=== PATIENT | male | born 1990 | race Caucasian/White ===

== ENCOUNTER → 2019-10-20 12:40 | Outpatient (BNVA) | payer MEDICARE, MEDICAID, SELFPAY | PROVIDERS: PCP Family Medicine; Visit Provider Psychiatry & Neurology Psychiatry | DX: F20.89 Other schizophrenia (principal) | CPT/HCPCS: 99214 ==

== ENCOUNTER → 2019-11-14 12:19 | Outpatient (BNVA) | payer MEDICARE, MEDICAID, SELFPAY | PROVIDERS: PCP Family Medicine; Visit Provider Nurse Practitioner Psychiatric/Mental Health | DX: F20.9 Schizophrenia, unspecified; F41.1 Generalized anxiety disorder; F12.11 Cannabis abuse, in remission | CPT/HCPCS: 80307; 99214 ==

== ENCOUNTER → 2019-12-08 15:38 | Outpatient (BNVA) | payer MEDICARE, MEDICAID, SELFPAY | PROVIDERS: PCP Family Medicine; Visit Provider Psychiatry & Neurology Psychiatry | DX: F20.9 Schizophrenia, unspecified (principal); F41.1 Generalized anxiety disorder | CPT/HCPCS: 99213 ==

== ENCOUNTER → 2019-12-26 08:38 | Outpatient (BNVA) | payer MEDICARE, MEDICAID, SELFPAY | PROVIDERS: PCP Family Medicine; Visit Provider Psychiatry & Neurology Psychiatry | DX: F41.1 Generalized anxiety disorder (principal); F20.9 Schizophrenia, unspecified; F12.11 Cannabis abuse, in remission | CPT/HCPCS: 99213 ==

== ENCOUNTER → 2020-02-29 07:48 | Outpatient (BNVA) | payer MEDICARE, MEDICAID, SELFPAY | PROVIDERS: PCP Family Medicine; Visit Provider Psychiatry & Neurology Psychiatry | DX: F41.1 Generalized anxiety disorder (principal); F20.9 Schizophrenia, unspecified; F12.11 Cannabis abuse, in remission | CPT/HCPCS: 99214 ==

== ENCOUNTER 2020-05-27 16:52 | Emergency (ER) | payer MEDICARE, SELFPAY ==
[2020-05-27 16:59] VITALS: BP 140/83; PULSE 106; RESP 16; TEMP 36.8; O2SAT 96; BMI 28.2
[2020-05-27 17:47] VITALS: BP 125/76; PULSE 94; RESP 18; O2SAT 96
--- NOTE | 2020-05-27 18:23 | ED_ITS ---
HPI - Allergic Reaction General: Chief complaint: Allergic Reaction Stated complaint: ALLERGIC REACTION Time Seen by Provider: 05/27/20 17:08 Source: patient Mode of arrival: EMS Limitations: no limitations History of Present Illness: HPI narrative: Patient felt like a swelling in his throat earlier today, slept and woke up on he still had the feeling. He got a little anxious and he felt he was having some trouble breathing so he called for an ambulance. He does not know what he may be allergic to. In the ambulance he received Benadryl and his symptoms had resolved by the time he arrived in the emergency department. He felt much improved and did not have any complaints when I saw him. complaint: allergic reaction Onset (ago): hour(s) (4) Exposure: unknown Associated symptoms: Reports difficulty breathing and dysphagia; Deny dizziness, facial swelling, hoarseness, itching, lip swelling, nausea, rash, tongue swelling or vomiting Treatment prior to arrival: benadryl Review of Systems General: Reports: 10 or more systems reviewed and unremarkable except in HPI and below Const: Denies: fever(s), chills or body aches Eyes: Denies: change in vision or blurry vision ENMT: Denies: hoarseness Card: Denies: palpitations, irregular heart rhythm, edema or swelling of feet/ankles Resp: Denies: dyspnea, productive cough or non-productive cough GI: Reports: dysphagia; Denies: nausea or vomiting : Denies: flank pain, dysuria, urinary frequency, urinary urgency or urinary hesitancy Musc: Denies: neck pain, back pain or extremity swelling Skin/Breast: Denies: rash, pruritus or erythema Neuro: Denies: dizziness Endo: Denies: polyuria, polydipsia or tired all the time All/Imm: Denies: tongue swelling or facial swelling PFSH ED PFSH: Medical History Generalized anxiety disorder Diagnosis from previous provider, Dr. Eugene. Marijuana abuse in remission Patient reports abstinence from illegal drug use. He does report using Kratom , one or two tablespoons per day. Recent surgical procedure on lower extremity Right leg Schizophrenia Longstanding diagnosis. Surgical History History of rectal surgery Physical Exam Const: COMMON NORMALS: no acute distress, average body habitus, patient oriented x3, no limitations, healthy appearing, alert and well nourished HENMT: COMMON NORMALS: normocephalic, atraumatic and moist oral mucous membranes HEAD & SCALP: normocephalic and atraumatic Neck/C-Spine: COMMON NORMALS: no meningeal signs and no JVD Resp: COMMON NORMALS: normal respiratory effort, No retractions, No use of accessory muscles, clear to auscultation bilaterally and percussion normal AUSCULTATION: clear to auscultation bilaterally PERCUSSION: percussion normal Cardio: COMMON NORMALS: no JVD, regular rate, regular rhythm, S1 normal heart sound present, S2 normal heart sound present, No gallops present (Cardio), No clicks present (Cardio), No murmurs present (Cardio), No rub (Cardio) and Peripheral pulses 2+ throughout RATE: regular rate RHYTHM: regular rhythm HEART SOUNDS: S1 normal heart sound present and S2 normal heart sound present PERIPHERAL PULSES: Peripheral pulses 2+ throughout GI: COMMON NORMALS: Normal to inspection, nondistended, normoactive bowel sounds present, Soft to palpation, non-tender, No hepatosplenomegaly present, no masses and no bruits PALPATION: Yes Soft to palpation and Yes No hepatosplenomegaly present Extremity: COMMON NORMALS: normal to inspection, full ROM, capillary refill normal, no calf tenderness and no pedal edema Neuro: COMMON NORMALS: patient oriented x3 SENSORIUM/ORIENTATION: Yes alert MENINGEAL SIGNS: Yes no meningeal signs Skin: COMMON NORMALS: no rashes or lesions noted, no wounds, turgor normal, no jaundice, no petechiae and no mottling GENERAL SKIN EXAM: no rashes or lesions noted and turgor normal Course Reevaluation(s): Reevaluation #1: Continues to do well. Still asymptomatic. We will discharge him home with a prescription for oral steroids and Benadryl. He voiced understanding and is in agreement with the plan Time: 18:23 Vital Signs: Vital signs: Vital Signs Temperature 98.2 F 05/27/20 16:59 Pulse Rate 98 05/27/20 18:33 Respiratory Rate 17 05/27/20 18:33 Blood Pressure 127/95 05/27/20 18:33 Pulse Oximetry 96 05/27/20 18:33 MDM - Allergic Reaction MDM Narrative: Medical decision making narrative: 30-year-old male who presented with symptoms that he felt was due to allergies. He was given Benadryl in the ambulance and symptoms resolved prior to arriving in the emergency department. He was given a dose of intravenous steroids to combat a delayed reaction effects happened to occur. I discharged home with oral steroids and Benadryl. He remained asymptomatic throughout his ED stay. Vital signs were fine. Medical Records: Attestation: I reviewed the patient's medical records. Discharge Plan Discharge Patient Disposition: Home Clinical Impression: Allergic reaction Qualifiers: Encounter type: initial encounter Qualified Code(s): T78.40XA - Allergy, unspecified, initial encounter Condition: Stable Prescriptions: New Benadryl Allergy 25 mg tablet 25 mg PO Q6H PRN (Reason: allergic reaction) Qty: 30 RF: 0 prednisone 20 mg tablet 40 mg PO DAILY 3 Days Qty: 6 RF: 0 Continued olanzapine 2.5 mg tablet 2.5 mg PO .HS Qty: 30 RF: 0 perphenazine 2 mg tablet 6 mg PO .HS Qty: 90 RF: 0 sertraline [Zoloft] 100 mg tablet 100 mg PO DAILY Qty: 30 RF: 0 Discharge Orders: Discharge Order (Routine); Ordered 05/27/20 Ordered By: Mehnaz Mistry Referrals: [facility], [Family Provider] - Patient Instructions: Allergic Reaction Activity Restrictions/Additional Instructions: Return for any new or worsening symptoms. Follow-up with your primary care provider within 3 days. Take the medications as prescribed. Discharge Date/Time: 05/27/20 18:35 Coding Level of Care Code ED Telemedicine Physician for Faina Pearson
[2020-05-27 18:33] VITALS: BP 127/95; PULSE 98; RESP 17; O2SAT 96
== END 2020-05-27 18:35 | disposition home or self-care (01) ==
PROVIDERS: Emergency Provider Family Medicine
DX: T78.40XA Allergy, unspecified, initial encounter (principal)
CPT/HCPCS: 12345; 96374; 96375; 99281; 99283; J2930

== ENCOUNTER → 2020-06-06 08:22 | Outpatient (BNVA) | payer MEDICARE, MEDICAID, SELFPAY | PROVIDERS: Visit Provider Psychiatry & Neurology Psychiatry | DX: F12.11 Cannabis abuse, in remission (principal); F41.1 Generalized anxiety disorder; F20.9 Schizophrenia, unspecified | CPT/HCPCS: 99213 ==

== ENCOUNTER → 2020-07-31 08:13 | Outpatient (BNVA) | payer MEDICARE, MEDICAID, SELFPAY | PROVIDERS: Visit Provider Psychiatry & Neurology Psychiatry | DX: F41.1 Generalized anxiety disorder (principal); F12.11 Cannabis abuse, in remission; F20.9 Schizophrenia, unspecified | CPT/HCPCS: 99214 ==

== ENCOUNTER 2020-09-25 02:22 | Inpatient (IN) | payer MEDICARE, SELFPAY ==
[2020-09-25] VITALS (7 sets, daily range): BP systolic 91–164; BP diastolic 66–115; PULSE 86–131; RESP 16–20; TEMP 36.1–37.3; O2SAT 96–98; BMI 30.8
--- NOTE | 2020-09-25 02:38 | W.ED.PSYCH ---
HPI - Psych General: Chief Complaint: Psychiatric Symptoms Stated Complaint: psych Time Seen by Provider: 09/25/20 02:27 Source: patient Mode of arrival: ambulatory Limitations: no limitations History of Present Illness: HPI Narrative: 30-year-old male who is brought here by police hallucinations. He states he has a history of schizophrenia and has not been taking his meds and used methamphetamine recently. He states he has been hearing voices and thinks that people are out to kill him. Denies any suicidal homicidal ideations. Denies any worsening improving factors. Associated symptoms: Reports auditory hallucinations and depression Review of Systems Const: Denies: fever(s), chills, body aches or change in appetite Eyes: Denies: blurry vision or eye discomfort ENMT: Denies: throat pain or dental pain Card: Denies: chest pain Resp: Denies: dyspnea GI: Denies: abdominal pain, nausea, vomiting or diarrhea : Denies: dysuria Musc: Denies: neck pain or back pain Skin/Breast: Denies: rash Neuro: Denies: headache(s) Psych: Reports: depression, paranoia and auditory hallucinations Александр/Lymph: Denies: easy bruising All/Imm: Denies: urticaria PFSH ED PFSH: Medical History (Updated 09/25/20 @ 03:31 by Daysi Hensley MD) Generalized anxiety disorder Diagnosis from previous provider, Dr. Eugene. Marijuana abuse in remission Patient reports abstinence from illegal drug use. He does report using Kratom , one or two tablespoons per day. Recent surgical procedure on lower extremity Right leg Schizophrenia Longstanding diagnosis. Surgical History History of rectal surgery Physical Exam Const: COMMON NORMALS: patient oriented x3 GENERAL APPEARANCE: in distress and anxious HENMT: COMMON NORMALS: normocephalic and atraumatic HEAD & SCALP: normocephalic and atraumatic Eye: COMMON NORMALS: Equal, round and reactive pupils present and EOMs intact bilaterally PUPIL: Yes Equal, round and reactive pupils present Neck/C-Spine: COMMON NORMALS: full ROM and supple Chest: COMMONS NORMALS: normal inspection of the chest and normal palpation of entire chest wall Resp: COMMON NORMALS: normal respiratory effort, No retractions, No use of accessory muscles and clear to auscultation bilaterally AUSCULTATION: clear to auscultation bilaterally Cardio: COMMON NORMALS: regular rate, regular rhythm and No murmurs present (Cardio) RATE: regular rate RHYTHM: regular rhythm GI: COMMON NORMALS: Normal to inspection, nondistended, normoactive bowel sounds present, Soft to palpation, non-tender and no masses PALPATION: Yes Soft to palpation Extremity: COMMON NORMALS: normal to inspection and full ROM Neuro: COMMON NORMALS: patient oriented x3, moves all extremities and no focal motor deficits Psych: COMMON NORMALS: cooperative MOOD & AFFECT: Yes anxious THOUGHT PROCESS: Flight of ideas present and Loose association thought process present THOUGHT CONTENT: Yes Hallucination(s) present Skin: COMMON NORMALS: no rashes or lesions noted and no wounds GENERAL SKIN EXAM: no rashes or lesions noted MDM - Psych MDM Narrative: Medical decision making narrative: Eleanor presents here with schizophrenia with increased hallucinations. Is likely due to noncompliance along with methamphetamine abuse. Patient is medically cleared I spoke to psychiatrist and will admit at this time. Lab Data: Labs: Lab Results 09/25/20 09/25/20 09/25/20 Range/Units 02:55 03:10 03:10 WBC 14.6 H (4.0-10.0) 10^3/ uL RBC 5.84 H (4.1-5.3) 10^6/u L Hgb 16.1 (11.7-16.6) g/dL Hct 47.7 (42.0-52.0) % MCV 81.7 (80-94) fL MCH 27.6 L (28.0-34.0) pg MCHC 33.8 (30.0-36.0) g/dL RDW 12.1 (12.1-15.1) % Plt Count 358 (130-400) 10^3/c mm MPV 10.2 (7.4-10.4) fL Neut % (Auto) 81.8 % Lymph % (Auto) 9.5 % Chase % (Auto) 8.3 % Eos % (Auto) 0.0 % Baso % (Auto) 0.2 % Neut # (Auto) 11.90 H (1.8-7.7) 10^3/u L Lymph # (Auto) 1.4 (0.8-4.8) 10^3/u L Chase # (Auto) 1.2 H (0.2-0.9) 10^3/u L Eos # (Auto) 0.0 (0.0-0.8) 10^3/u L Baso # (Auto) 0.0 (0.0-0.1) 10^3/u L Nucleated RBC % (a uto) 0 % Nucleated RBCs # 0.0 /100WBC Sodium 137 (136-145) mmol/L Potassium 3.7 (3.5-5.1) mmol/L Chloride 100 (98-107) mmol/L Carbon Dioxide 24 (22-29) mmol/L Anion Gap 16.7 (5-19) BUN 10 (6-20) mg/dL Creatinine 1.1 (0.7-1.2) mg/dL GFR Calculation 78.1 L (90-130) mL/min Glucose 109 (65-115) mg/dL Calculated Osmolal ity 284 L (285-295) mOsm/k g Calcium 10.1 (8.5-10.5) mg/dL Total Bilirubin 0.3 (0.15-1.2) mg/dL AST 21 (0-40) U/L ALT 22 (0-41) U/L Alkaline Phosphata se 133 H (40-130) IU/L Total Protein 8.1 (6.6-8.7) g/dL Albumin 4.7 (3.5-5.2) g/dL Globulin 3.4 (1.3-4.6) g/dL Salicylates < 0.3 L (3-10) mg/dL Urine Opiates Scre en Negative (Negative) ng/mL Acetaminophen < 5.0 L (10-30) ug/mL Ur Barbiturates Sc reen Negative (Negative) ng/mL Ur Phencyclidine S crn Negative (Negative) ng/mL Ur Amphetamines Sc reen Positive H (Negative) ng/mL U Benzodiazepines Scrn Negative (Negative) ng/mL Urine Cocaine Scre en Positive H (Negative) ng/mL U Marijuana (THC) Screen Negative (Negative) ng/mL Ethyl Alcohol 14 H (0-10) mg/dL Discharge Plan Discharge Patient Disposition: Admitted As Inpatient Clinical Impression: Schizophrenia, Methamphetamine abuse Condition: Stable Coding Level of Care Code ED Center Receptionist for Chg Fwd Exam Comprehensive
[2020-09-25] MEDS: haloperidol 5 mg Tablet PO (02:45)
[2020-09-25] MEDS: LORazepam 2 mg Tablet PO (02:45)
[2020-09-25 03:16] LABS: Basophils % 0.2 %; Hematocrit 47.7 % (42.0-52.0); Hemoglobin 16.1 g/dL (11.7-16.6); Lymphocytes # 1.4 10^3/uL (0.8-4.8); Lymphocytes % 9.5 %; Mean Corpuscular HGB Conc 33.8 g/dL (30.0-36.0); Mean Corpuscular Hemoglobin 27.6 pg (28.0-34.0); Mean Corpuscular Volume 81.7 fL (80-94); Mean Platelet Volume 10.2 fL (7.4-10.4); Monocytes # 1.2 10^3/uL (0.2-0.9); Monocytes % 8.3 %; Neutrophils % 81.8 %; Nucleated Red Blood Cells % 0 %; Platelet Count 358 10^3/cmm (130-400); Red Blood Count 5.84 10^6/uL (4.1-5.3); Red Cell Distribution Width 12.1 % (12.1-15.1); White Blood Count 14.6 10^3/uL (4.0-10.0)
[2020-09-25 03:22] LABS: Amphetamines Screen Urine Positive (Negative); Barbiturates Screen Urine Negative (Negative); Benzodiazepines Screen Urine Negative (Negative); Cocaine Screen Urine Positive (Negative); Opiate Screen Urine Negative (Negative); PCP Screen Urine Negative (Negative); THC Screen Urine Negative (Negative)
[2020-09-25 03:35] LABS: Alanine Aminotransferase 22 U/L (0-41); Albumin Level 4.7 g/dL (3.5-5.2); Alcohol Level 14 mg/dL (0-10); Alkaline Phosphatase 133 IU/L (40-130); Anion Gap 16.7 (5-19); Aspartate Amino Transferase 21 U/L (0-40); Blood Urea Nitrogen 10 mg/dL (6-20); Calcium 10.1 mg/dL (8.5-10.5); Carbon Dioxide 24 mmol/L (22-29); Chloride 100 mmol/L (98-107); Globulin 3.4 g/dL (1.3-4.6); Glomerular Filtration Rate 78.1 mL/min (90-130); Glucose 109 mg/dL (65-115); Osmolality Calculated 284 mOsm/kg (285-295); Potassium 3.7 mmol/L (3.5-5.1); Sodium 137 mmol/L (136-145); Total Bilirubin 0.3 mg/dL (0.15-1.2); Total Protein 8.1 g/dL (6.6-8.7)
[2020-09-25 03:36] LABS: Acetaminophen < 5.0 ug/mL (10-30); Salicylate < 0.3 mg/dL (3-10)
[2020-09-25] MEDS: nicotine 2 mg Gum BUCCAL (05:06)
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
[2020-09-25] MEDS: OLANZapine 10 mg TABLET PO (23:28)
[2020-09-26] MEDS: hyDROXYzine 25 mg Capsule 50 MG PO (03:14)
[2020-09-26 05:59] VITALS: BP 133/78; PULSE 97; RESP 16; TEMP 37; O2SAT 97
[2020-09-26 14:00] VITALS: BP 126/86; PULSE 94; RESP 18; TEMP 36.2; O2SAT 98
--- NOTE | 2020-09-26 18:50 | PM.NPN ---
Subjective NPU Subjective: Interval history: Korey presents today reporting that he is feeling better with the Zyprexa and feels like he will be able to manage things fine now that he has access to his medication. He denies any lethality and reports that his psychosis is improving. We discussed the possibility of discharge tomorrow if he continues to do well and are collateral information does not uncover any problematic issues. Mental Status Exam MSE Comments: This is an obese white male in hospital scrubs with limited grooming and eye contact. No abnormal movements except for mild psychomotor retardation. Cooperative with exam in less distress. Speech was decreased rate and volume. Mood described as a little better, affect less subdued. Thought process organized. Thought content: Patient denied suicidal or homicidal ideation, there were no delusions reported and his paranoia seems less notable, he denied any auditory or visual hallucinations at this point. Attention and concentration appeared intact and memory was reliable but none were formally tested. He is alert and oriented x3. Insight and judgment are limited, but improving impulse control is fair. Vitals/I&O/Wt Last Vital Signs Temp 98.5 F 09/26/20 20:10 Pulse 92 09/26/20 20:10 Resp 18 09/26/20 20:10 BP 137/81 09/26/20 20:10 Pulse Ox 97 09/26/20 20:10 Data NPU : 09/25/20 03:10 09/25/20 03:10 A&P Additional A&P Information (1) Methamphetamine abuse: (2) Marijuana abuse in remission: (3) Generalized anxiety disorder: (4) Schizophrenia: This is a 30-year-old white male with a long history of mental health issues including schizophrenia with addiction active at this point who presents off of his medication on a 96-hour hold open to restarting medications. 1. Continue current medication. 2. Continue every 15 minute checks for safety. 3. Encourage individual group and milieu therapy. 4. Encourage sober living treatment after discharge at the highest level of care to which she is willing to commit. 5. Likely plan for discharge tomorrow. Involuntary Hold Information 96 Hour Hold: 96 Hour Involuntary Admission: Yes 96 Hour Hold Ending Date: 10/01/20 96 Hour Hold Ending Time: 02:22 Attestations NPU Medical Necessity Statement*: Inpatient hospitalization is medically necessary and the clinically appropriate intervention at this time. We will monitor medications and make changes as indicated. Likely length of stay 1-3 days. Coding Level of Care Code Acute Security Operations Specialist for Faina Pearson
[2020-09-26 20:10] VITALS: BP 137/81; PULSE 92; RESP 18; TEMP 36.9; O2SAT 97
[2020-09-26] MEDS: acetaminophen 325 mg Tablet 650 MG PO (21:58)
[2020-09-26] MEDS: OLANZapine 10 mg TABLET PO (21:59)
[2020-09-27 06:00] VITALS: BP 109/73; PULSE 74; RESP 19; TEMP 36.4; O2SAT 97
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
[2020-09-27 15:39] VITALS: BP 109/73; PULSE 74; RESP 19; TEMP 36.4; O2SAT 97
== END 2020-09-27 16:03 | disposition home or self-care (01) | DRG 885 ==
LOC: ER 03:31 → NP 04:18
PROVIDERS: Admitting Provider Psychiatry & Neurology Psychiatry; Emergency Provider Emergency Medicine; Visit Provider Psychiatry & Neurology Psychiatry
DX: F20.9 Schizophrenia, unspecified (principal); Z91.14 Patient's other noncompliance with medication regimen; F15.10 Other stimulant abuse, uncomplicated; F12.11 Cannabis abuse, in remission; F41.1 Generalized anxiety disorder
CPT/HCPCS: 12345; 80053; 80306; 80307; 85025; 99284

== ENCOUNTER → 2020-10-25 08:17 | Outpatient (BNVA) | payer MEDICARE, SELFPAY | PROVIDERS: Visit Provider Psychiatry & Neurology Psychiatry | DX: F41.1 Generalized anxiety disorder (principal); F15.10 Other stimulant abuse, uncomplicated; F12.11 Cannabis abuse, in remission; F20.9 Schizophrenia, unspecified | CPT/HCPCS: 99214 ==

== ENCOUNTER 2020-11-01 23:59 | Emergency (ER) | payer MEDICARE, SELFPAY ==
[2020-11-02 00:09] VITALS: BP 155/100; PULSE 113; RESP 22; TEMP 36.8; O2SAT 99; BMI 25.7
--- NOTE | 2020-11-02 00:22 | ED_ITS ---
HPI - Wound/Laceration General: Chief Complaint: Wound/Laceration Stated Complaint: LACERATION TO R INDEX FINGER/CUTTING CARPET Time Seen by Provider: 11/02/20 00:09 Source: patient Mode of arrival: ambulatory Limitations: no limitations History of Present Illness: HPI narrative: 30-year-old male states he cut his left index finger with a high lead yarder knife roughly 30 minutes ago. He has a small 1 cm laceration. States that it just would not stop bleeding at home. He denies any other injuries. He is unsure when his last tetanus was. He denies any pain currently Associated symptoms: Denies chills, fever(s), nausea or vomiting Review of Systems Const: Denies: fever(s), chills, body aches or change in appetite Eyes: Denies: blurry vision or eye discomfort ENMT: Denies: throat pain or dental pain Card: Denies: chest pain Resp: Denies: dyspnea GI: Denies: abdominal pain, nausea, vomiting or diarrhea : Denies: dysuria Musc: Denies: neck pain or back pain Skin/Breast: Denies: rash Neuro: Denies: headache(s) Psych: Denies: depression Александр/Lymph: Denies: easy bruising All/Imm: Denies: urticaria PFSH ED PFSH: Medical History (Updated 11/02/20 @ 00:25 by Daysi Hensley MD) Generalized anxiety disorder Diagnosis from previous provider, Dr. Eugene. Marijuana abuse in remission Patient reports abstinence from illegal drug use. He does report using Kratom , one or two tablespoons per day. Recent surgical procedure on lower extremity Right leg Schizophrenia Longstanding diagnosis. Surgical History History of rectal surgery Physical Exam Const: COMMON NORMALS: no acute distress, patient oriented x3 and healthy appearing HENMT: COMMON NORMALS: normocephalic and atraumatic HEAD & SCALP: normocephalic and atraumatic Eye: COMMON NORMALS: Equal, round and reactive pupils present and EOMs intact bilaterally PUPIL: Yes Equal, round and reactive pupils present Neck/C-Spine: COMMON NORMALS: full ROM and supple Chest: COMMONS NORMALS: normal inspection of the chest and normal palpation of entire chest wall Resp: COMMON NORMALS: normal respiratory effort, No retractions, No use of accessory muscles and clear to auscultation bilaterally AUSCULTATION: clear to auscultation bilaterally Cardio: COMMON NORMALS: regular rate, regular rhythm and No murmurs present (Cardio) RATE: regular rate RHYTHM: regular rhythm GI: COMMON NORMALS: Normal to inspection, nondistended, normoactive bowel sounds present, Soft to palpation, non-tender and no masses PALPATION: Yes Soft to palpation Extremity: COMMON NORMALS: normal to inspection and full ROM Neuro: COMMON NORMALS: patient oriented x3, moves all extremities and no focal motor deficits Psych: COMMON NORMALS: mental status grossly normal, Normal thought process present and cooperative THOUGHT PROCESS: Normal thought process present Skin: COMMON NORMALS: no rashes or lesions noted NARRATIVE SKIN EXAM: Small 1 cm laceration superficial to the index finger on the left distal portion no tendon involvement GENERAL SKIN EXAM: no rashes or lesions noted Procedures Laceration Laceration 1: Site: hand Side (If applicable): left Size (cm): 1 Description: linear Depth: simple, single layer Pre-repair: wound explored and irrigated extensively Skin layer closed with: other (dermabond) Course Vital Signs: Vital signs: Vital Signs Temperature 98.2 F 11/02/20 00:09 Pulse Rate 113 H 11/02/20 00:09 Respiratory Rate 22 H 11/02/20 00:09 Blood Pressure 155/100 11/02/20 00:09 Pulse Oximetry 99 11/02/20 00:09 MDM - Wound/Laceration MDM Narrative: Medical decision making narrative: Korey presents here with laceration to his distal index finger. Superficial nature and I repaired it with tissue adhesive. He had no tendon involvement. He is stable for discharge and is to follow-up with his PCP in 3 to 5 days and return if worsening. Discharge Plan Discharge Patient Disposition: Home Clinical Impression: Laceration Condition: Stable Prescriptions: No Action gabapentin 300 mg capsule 300 mg PO TID Qty: 90 RF: 2 olanzapine 10 mg tablet 10 mg PO BEDTIME 30 Days Qty: 30 RF: 2 sertraline 50 mg tablet 50 mg PO DAILY Qty: 30 RF: 2 Chantix 1 mg tablet 1 mg PO BID Qty: 56 RF: 2 diphenhydramine HCl [Benadryl Allergy] 25 mg tablet 25 mg PO Q6H PRN (Reason: allergic reaction) Qty: 30 RF: 0 Discharge Orders: Discharge ED (Routine); Ordered 11/02/20 Ordered By: Daysi Hensley Discharge Diet: Advance as tolerated Discharge Activity: Resume usual activity Patient Instructions: Finger Laceration (ED), Skin Adhesive Care (ED) Coding Level of Care Code ED Manager Contract for Faian Fwrandall Exam Comprehensive
[2020-11-02] MEDS: tetanus-dipt-pertussis 0.5 mL SDV IM (00:28)
[2020-11-02 00:47] VITALS: BP 155/100; RESP 18
== END 2020-11-02 00:30 | disposition home or self-care (01) ==
PROVIDERS: Emergency Provider Emergency Medicine
DX: S61.211A Laceration without foreign body of left index finger without damage to nail, initial encounter (principal); W26.0XXA Contact with knife, initial encounter; Z23 Encounter for immunization
CPT/HCPCS: 12001; 90471; 90715; 99281

== ENCOUNTER 2020-12-28 22:28 | Emergency (ER) | payer MEDICARE, MEDICAID, SELFPAY ==
[2020-12-28 22:55] VITALS: BP 114/80; PULSE 97; RESP 18; TEMP 36.8; O2SAT 98; BMI 28.2
--- NOTE | 2020-12-28 23:48 | W.ED.DIZZY ---
HPI - Dizziness General: Chief Complaint: Dizziness Stated Complaint: vertigo, dizziness, light headedness Time Seen by Provider: 12/28/20 23:48 Source: patient Mode of arrival: ambulatory Limitations: no limitations History of Present Illness: HPI Narrative: Patient comes in today for complaints of dizziness for the past 2 to 3 days. Patient has been using a supplement which he believes may be causing his symptoms. Patient appears well. Patient appears no acute distress. Patient does take medications for schizophrenia and has a history of substance abuse. MD elicited complaint: dizziness Severity: mild Context: change in medication Review of Systems General: Reports: 10 or more systems reviewed and unremarkable except in HPI and below Neuro: Reports: dizziness PFSH ED PFSH: Medical History (Updated 12/29/20 @ 00:19 by APRIL Schroeder) Generalized anxiety disorder Diagnosis from previous provider, Dr. Eugene. Marijuana abuse in remission Patient reports abstinence from illegal drug use. He does report using Kratom , one or two tablespoons per day. Recent surgical procedure on lower extremity Right leg Schizophrenia Longstanding diagnosis. Surgical History History of rectal surgery Physical Exam Const: COMMON NORMALS: no acute distress and patient oriented x3 GENERAL APPEARANCE: cooperative HENMT: COMMON NORMALS: normocephalic, TM's normal bilaterally and Normal external nose present HEAD & SCALP: normal to inspection and normocephalic NOSE: Normal external nose present TYMPANIC MEMBRANE: TM's normal bilaterally MOUTH: Normal oral and palatal mucosa present Eye: GENERAL EYE: appearance normal, both eyes and all related structures Neck/C-Spine: COMMON NORMALS: full ROM Lymph: LYMPHATIC: no lymphadenopathy noted Chest: COMMONS NORMALS: normal inspection of the chest Resp: COMMON NORMALS: normal respiratory effort EFFORT & INSPECTION: Yes able to speak in complete sentences Cardio: COMMON NORMALS: regular rate and regular rhythm RATE: regular rate RHYTHM: regular rhythm GI: COMMON NORMALS: non-tender Back/Pelvis: COMMON NORMALS: thoracic and lumbar spine normal to inspection Extremity: COMMON NORMALS: normal to inspection Neuro: COMMON NORMALS: patient oriented x3 and moves all extremities Psych: COMMON NORMALS: mental status grossly normal and cooperative Skin: COMMON NORMALS: no rashes or lesions noted GENERAL SKIN EXAM: no rashes or lesions noted Course Vital Signs: Vital signs: Vital Signs Temperature 98.2 F 12/28/20 22:55 Pulse Rate 80 12/29/20 00:05 Respiratory Rate 18 12/28/20 22:55 Blood Pressure 131/80 12/29/20 00:05 Pulse Oximetry 98 12/28/20 22:55 MDM - Dizziness MDM Narrative: Medical decision making narrative: 30-year-old male comes in with concerns of dizziness. Patient has been using some herbal supplement for anxiety along with his routine medications. Patient believes that it may be what has caused his dizziness but wanted to be evaluated to make sure. On exam lungs are clear to auscultation. Skin was warm and dry. No focal neural deficits were noted. No orthostatic blood pressure was noted. Differential diagnoses includes adverse drug effect, anxiety, worried well, hypertension. Physical exam was normal. Patient was not orthostatic on blood pressures. Reviewed exam with patient with recommendations for treatment and follow-up. Patient was agreeable to plan for follow-up or return to the ER as needed. Recommended patient change positions slowly and avoid the use of supplements with his routine medications. Discharge Plan Discharge Patient Disposition: Home Clinical Impression: Benign paroxysmal positional vertigo Qualifiers: Laterality: unspecified laterality Qualified Code(s): H81.10 - Benign paroxysmal vertigo, unspecified ear Condition: Stable Prescriptions: No Action gabapentin 300 mg capsule 300 mg PO TID Qty: 90 RF: 2 olanzapine 10 mg tablet 10 mg PO BEDTIME 30 Days Qty: 30 RF: 2 sertraline 50 mg tablet 50 mg PO DAILY Qty: 30 RF: 2 Chantix 1 mg tablet 1 mg PO BID Qty: 56 RF: 2 diphenhydramine HCl [Benadryl Allergy] 25 mg tablet 25 mg PO Q6H PRN (Reason: allergic reaction) Qty: 30 RF: 0 Discharge Orders: Discharge ED (Routine); Ordered 12/29/20 Ordered By: Dmitry Celaya Discharge Diet: Usual diet Discharge Activity: Increase activity as tolerated Patient Instructions: Dizziness (ED), Opioid Safety Activity Restrictions/Additional Instructions: Drink plenty of fluids. Activity as tolerated. Gentle stretching and range of motion activity. Continue with routine medications. Avoid the use of supplements unless consulting with healthcare provider prior to use. Return to the emergency department for new concerns. Coding Level of Care Code ED Manager Drive for [employer] Fwd Exam Comprehensive
[2020-12-29 00:05] VITALS: BP 131/80; BP 144/88; BP 152/90; PULSE 80; PULSE 85; PULSE 91
[2020-12-29 00:51] VITALS: BP 144/88; PULSE 74; RESP 18; O2SAT 98
== END 2020-12-29 00:45 | disposition home or self-care (01) ==
PROVIDERS: Emergency Provider Nurse Practitioner Family
DX: H81.10 Benign paroxysmal vertigo, unspecified ear (principal)
CPT/HCPCS: 99281

== ENCOUNTER → 2021-01-23 08:29 | Outpatient (BNVA) | payer MEDICARE, MEDICAID, SELFPAY | PROVIDERS: Visit Provider Psychiatry & Neurology Psychiatry | DX: F20.9 Schizophrenia, unspecified (principal); F41.1 Generalized anxiety disorder; F12.11 Cannabis abuse, in remission; F17.200 Nicotine dependence, unspecified, uncomplicated | CPT/HCPCS: 99214 ==

== ENCOUNTER 2021-02-06 10:07 | Emergency (ER) | payer MEDICARE, MEDICAID, SELFPAY ==
[2021-02-06 10:12] VITALS: BP 130/88; PULSE 96; RESP 18; TEMP 37.1; O2SAT 96; BMI 28.2
[2021-02-06 10:21] VITALS: BP 130/88; PULSE 97; RESP 18; O2SAT 97
--- NOTE | 2021-02-06 10:37 | W.ED.GENADLT ---
HPI - General Adult General: Chief complaint: General Medical Stated complaint: INSOMNIA/ HALLUCINATING Time Seen by Provider: 02/06/21 10:32 History of Present Illness: HPI narrative: Patient states he needs some for anxiety for sleep. He said he has been anxious last few days and he is hearing voices now that he is not been able get a sleep and like to have some sleeping medication also. Patient does not currently work has not for the last 2 years. He says been drug-free for 2 years also. Patient says he sees [facility] and has not had any prescriptions here lately. Patient denies being suicidal or are homicidal. Onset (ago): day(s) Associated symptoms: Reports no associated symptoms; Deny chest pain, dyspnea, headache(s), nausea, rash or vomiting Review of Systems Const: Denies: fever(s), chills or body aches Eyes: Denies: change in vision or blurry vision ENMT: Denies: throat pain or nasal congestion Card: Denies: chest pain or dyspnea on exertion Resp: Denies: dyspnea, productive cough or non-productive cough GI: Denies: abdominal pain, nausea or vomiting : Denies: difficulty urinating Musc: Denies: extremity pain Skin/Breast: Denies: rash Neuro: Denies: headache(s) Psych: Reports: anxiety, sleeping less and auditory hallucinations; Denies: depression, suicidal ideation or homicidal ideation Александр/Lymph: Denies: easy bruising [facility] ED PFSH: Medical History (Updated 01/23/21 @ 10:15 by Giorgio Eugene MD) Generalized anxiety disorder Diagnosis from previous provider, Dr. Eugene. Marijuana abuse in remission Patient reports abstinence from illegal drug use. He does report using Kratom , one or two tablespoons per day. Recent surgical procedure on lower extremity Right leg Schizophrenia Longstanding diagnosis. Surgical History History of rectal surgery Physical Exam Const: COMMON NORMALS: no acute distress, average body habitus and patient oriented x3 HENMT: COMMON NORMALS: normocephalic HEAD & SCALP: normal to inspection and normocephalic FACE & SINUS: normal facial exam Eye: COMMON NORMALS: conjunctivae normal GENERAL EYE: appearance normal, both eyes and all related structures CONJUNCTIVA: Yes conjunctivae normal Neck/C-Spine: COMMON NORMALS: no JVD Chest: COMMONS NORMALS: normal inspection of the chest Resp: COMMON NORMALS: normal respiratory effort and clear to auscultation bilaterally AUSCULTATION: clear to auscultation bilaterally Cardio: COMMON NORMALS: no JVD, regular rate and regular rhythm RATE: regular rate RHYTHM: regular rhythm GI: COMMON NORMALS: Normal to inspection, nondistended, normoactive bowel sounds present Extremity: COMMON NORMALS: normal to inspection and full ROM Neuro: COMMON NORMALS: patient oriented x3 Course Vital Signs: Vital signs: Vital Signs Temperature 98.7 F 02/06/21 10:12 Pulse Rate 96 02/06/21 10:12 Respiratory Rate 18 02/06/21 10:12 Blood Pressure 130/88 02/06/21 10:12 Pulse Oximetry 96 02/06/21 10:12 Discharge Plan Discharge Prescriptions: No Action olanzapine 10 mg tablet 10 mg PO BEDTIME 30 Days Qty: 30 RF: 2 sertraline 50 mg tablet 50 mg PO DAILY Qty: 30 RF: 2 Chantix 1 mg tablet 1 mg PO BID Qty: 56 RF: 2 gabapentin 400 mg capsule 400 mg PO TID Qty: 90 RF: 2 diphenhydramine HCl [Benadryl Allergy] 25 mg tablet 25 mg PO Q6H PRN (Reason: allergic reaction) Qty: 30 RF: 0 Coding Level of Care Code ED Speeder Machine Operator for Faina Pearson
[2021-02-06] MEDS: hyDROXYzine 25 mg Capsule 50 MG PO (10:44)
[2021-02-06] MEDS: OLANZapine 10 mg TABLET PO (10:46)
[2021-02-06 11:58] VITALS: BP 124/83; PULSE 112; RESP 19; TEMP 37.3; O2SAT 99
== END 2021-02-06 12:15 | disposition home or self-care (01) ==
PROVIDERS: Emergency Provider Nurse Practitioner Family
DX: F41.9 Anxiety disorder, unspecified (principal)
CPT/HCPCS: 99283

== ENCOUNTER 2021-08-12 04:35 | Emergency (ER) | payer MEDICARE, MEDICAID, SELFPAY ==
[2021-08-12 04:36] VITALS: BP 131/71; PULSE 76; RESP 16; TEMP 36.4; O2SAT 95; BMI 25.7
--- NOTE | 2021-08-12 04:39 | ECG_ITS ---
[facility] Test Date: 2021-08-12 Pat Name: Korey Stevenson Department: Room: Gender: Male Bulk Sausage Casing Tier Off: : 1990 Requested By: Daysi Hensley Order Number: [id number] Jenna MD: Skip Palacios M.D. Measurements Intervals [place] Rate: 75 P: 44 IA: 170 QRS: 24 QRSD: 102 T: 34 QT: 376 QTc: 420 Interpretive Statements SINUS RHYTHM WITH SINUS ARRHYTHMIA NONSPECIFIC T-WAVE ABNORMALITY Compared to ECG 08/02/2019 22:27:56 T-wave abnormality now present Electronically Signed On 08-13-2021 17:40:51 SLIDE FORMING MACHINE TENDER by Skip Palacios M.D. [id number]
--- NOTE | 2021-08-12 04:47 | ED_ITS ---
HPI - Chest Pain General: Chief Complaint: Chest Pain Stated Complaint: BACK/CHEST PAIN Time Seen by Provider: 08/12/21 04:35 Source: patient and EMS Mode of arrival: EMS Limitations: no limitations History of Present Illness: HPI narrative: 31-year-old male has a history of schizophrenia states he did run out of [employer] 4 days started back tonight he said he woke up with aching in his back and across his shoulders roughly an hour ago history of discharge and concern is that radiated into his chest and down his left arm. He states it is since resolved patient received aspirin in route. Is no history of any coronary disease denies any cough denies any shortness of breath denies any worsening improving factors. Associated symptoms: Deny abdominal pain, dyspnea, fever(s), nausea or vomiting Review of Systems Const: Denies: fever(s), chills, body aches or change in appetite Eyes: Denies: blurry vision or eye discomfort ENMT: Denies: throat pain or dental pain Card: Denies: chest pain Resp: Denies: dyspnea GI: Denies: abdominal pain, nausea, vomiting or diarrhea : Denies: dysuria Musc: Denies: neck pain or back pain Skin/Breast: Denies: rash Neuro: Denies: headache(s) Psych: Denies: depression Александр/Lymph: Denies: easy bruising All/Imm: Denies: urticaria PFSH ED PFSH: Medical History (Updated 08/12/21 @ 05:32 by Daysi Hensley MD) Generalized anxiety disorder Diagnosis from previous provider, Dr. Eugene. Marijuana abuse in remission Patient reports abstinence from illegal drug use. He does report using Kratom , one or two tablespoons per day. Recent surgical procedure on lower extremity Right leg Schizophrenia Longstanding diagnosis. Surgical History History of rectal surgery Physical Exam Const: COMMON NORMALS: no acute distress, patient oriented x3 and healthy appearing HENMT: COMMON NORMALS: normocephalic and atraumatic HEAD & SCALP: normocephalic and atraumatic Eye: COMMON NORMALS: Equal, round and reactive pupils present and EOMs intact bilaterally PUPIL: Yes Equal, round and reactive pupils present Neck/C-Spine: COMMON NORMALS: full ROM and supple Chest: COMMONS NORMALS: normal inspection of the chest and normal palpation of entire chest wall Resp: COMMON NORMALS: normal respiratory effort, No retractions, No use of accessory muscles and clear to auscultation bilaterally AUSCULTATION: clear to auscultation bilaterally Cardio: COMMON NORMALS: regular rate, regular rhythm and No murmurs present (Cardio) RATE: regular rate RHYTHM: regular rhythm GI: COMMON NORMALS: Normal to inspection, nondistended, normoactive bowel sounds present, Soft to palpation, non-tender and no masses PALPATION: Yes Soft to palpation Extremity: COMMON NORMALS: normal to inspection and full ROM Neuro: COMMON NORMALS: patient oriented x3, moves all extremities and no focal motor deficits Psych: COMMON NORMALS: mental status grossly normal, Normal thought process present and cooperative THOUGHT PROCESS: Normal thought process present Skin: COMMON NORMALS: no rashes or lesions noted and no wounds GENERAL SKIN EXAM: no rashes or lesions noted Course Vital Signs: Vital signs: Vital Signs Temperature 97.6 F 08/12/21 04:36 Pulse Rate 76 08/12/21 04:36 Respiratory Rate 16 08/12/21 04:36 Blood Pressure 131/71 08/12/21 04:36 Pulse Oximetry 95 08/12/21 04:36 MDM - Chest Pain MDM Narrative: Medical decision making narrative: Patient presents for chest and back pain likely muscular in nature he does have some tenderness along his back his troponin D-dimer here negative EKG and x-ray are normal as well. He is stable for discharge will place him on Naprosyn. Lab Data: Labs: Lab Results 08/12/21 08/12/21 08/12/21 04:10 04:10 04:10 WBC 10.7 10^3/uL H 10 ^3/uL (4.0-10.0) RBC 4.98 10^6/uL 10^6 /uL (4.1-5.3) Hgb 14.0 g/dL g/dL (11.7-16.6) Hct 41.7 % L % (42.0-52.0) MCV 83.7 fl fl (80-94) MCH 28.1 pg pg (28.0-34.0) MCHC 33.6 g/dL g/dL (30.0-36.0) RDW 12.5 % % (12.1-15.1) Plt Count 282 10^3/cmm 10^3 /cmm (130-400) MPV 10.7 fL H fL (7.4-10.4) Neut % (Auto) 65.3 % % Lymph % (Auto) 25.6 % % [place] % (Auto) 6.3 % % Eos % (Auto) 1.8 % % Baso % (Auto) 0.6 % % Neut # (Auto) 7.00 10^3/uL 10^3 /uL (1.8-7.7) Lymph # (Auto) 2.7 10^3/uL 10^3/ uL (0.8-4.8) [place] # (Auto) 0.7 10^3/uL 10^3/ uL (0.2-0.9) Eos # (Auto) 0.2 10^3/uL 10^3/ uL (0.0-0.8) Baso # (Auto) 0.1 10^3/uL 10^3/ uL (0.0-0.1) Nucleated RBC % (a uto) 0 % % Nucleated RBCs # 0.0 /100WBC /100W BC D-Dimer Sodium 142 mmol/L mmol/L (136-145) Potassium 3.4 mmol/L L mmol /L (3.5-5.1) Chloride 105 mmol/L mmol/L (98-107) Carbon Dioxide 25 mmol/L mmol/L (22-29) Anion Gap 15.4 (5-19) BUN 13 mg/dL mg/dL (6-20) Creatinine 0.8 mg/dL mg/dL (0.7-1.2) GFR Calculation 112.0 mL/min mL/m in (90-130) Glucose 137 mg/dL H mg/dL (65-115) Calculated Osmolal ity 296 mOsm/kg H mOs m/kg (285-295) Calcium 8.8 mg/dL mg/dL (8.5-10.5) Total Bilirubin 0.2 mg/dL mg/dL (0.15-1.2) AST 9 U/L U/L (0-40) ALT 12 U/L U/L (0-41) Alkaline Phosphata se 93 IU/L IU/L (40-130) Troponin T Baselin e 6 ng/L ng/L (0-15) Total Protein 6.3 g/dL L g/dL (6.6-8.7) Albumin 3.9 g/dL g/dL (3.5-5.2) Globulin 2.4 g/dL g/dL (1.3-4.6) 08/12/21 04:10 WBC RBC Hgb Hct MCV MCH MCHC RDW Plt Count MPV Neut % (Auto) Lymph % (Auto) [place] % (Auto) Eos % (Auto) Baso % (Auto) Neut # (Auto) Lymph # (Auto) [place] # (Auto) Eos # (Auto) Baso # (Auto) Nucleated RBC % (a uto) Nucleated RBCs # D-Dimer 0.40 ug/mIFEU ug/ mIFEU (0-0.59) Sodium Potassium Chloride Carbon Dioxide Anion Gap BUN Creatinine GFR Calculation Glucose Calculated Osmolal ity Calcium Total Bilirubin AST ALT Alkaline Phosphata se Troponin T Baselin e Total Protein Albumin Globulin EKG Data^: EKG 1: Attestation: I personally reviewed and interpreted this EKG as follows: EKG interpretation date: 08/12/21 EKG interpretation time: 04:40 Interpretation: nsr hr [address] or t wave abnormalities qrs 102 qtc 404 Discharge Plan Discharge Patient Disposition: Home Clinical Impression: Atypical chest pain, Back pain Condition: Stable Prescriptions: New Naprosyn 500 mg tablet 500 mg PO BID PRN (Reason: pain) Qty: 20 RF: 0 No Action gabapentin 400 mg capsule 400 mg PO TID Qty: 90 RF: 0 hydroxyzine HCl 25 mg tablet 25 mg PO BID PRN (Reason: anxiety and insomnia) Qty: 60 RF: 0 olanzapine 10 mg tablet 10 mg PO BEDTIME 30 Days Qty: 30 RF: 0 sertraline 50 mg tablet 50 mg PO DAILY Qty: 30 RF: 0 diphenhydramine HCl [Benadryl Allergy] 25 mg tablet 25 mg PO Q6H PRN (Reason: allergic reaction) Qty: 30 RF: 0 Discharge Orders: Discharge ED (Routine); Ordered 08/12/21 Ordered By: Daysi Hensley Discharge Diet: Advance as tolerated Discharge Activity: Resume usual activity Patient Instructions: Chest Pain (ED) Coding Level of Care Code ED Oracle Business Intelligence Developer for Chg Fwd Exam Comprehensive
[2021-08-12 04:59] LABS: Basophils # 0.1 10^3/uL (0.0-0.1); Basophils % 0.6 %; Eosinophils # 0.2 10^3/uL (0.0-0.8); Eosinophils % 1.8 %; Hematocrit 41.7 % (42.0-52.0); Lymphocytes # 2.7 10^3/uL (0.8-4.8); Lymphocytes % 25.6 %; Mean Corpuscular HGB Conc 33.6 g/dL (30.0-36.0); Mean Corpuscular Hemoglobin 28.1 pg (28.0-34.0); Mean Corpuscular Volume 83.7 fl (80-94); Mean Platelet Volume 10.7 fL (7.4-10.4); Monocytes # 0.7 10^3/uL (0.2-0.9); Monocytes % 6.3 %; Neutrophils % 65.3 %; Nucleated Red Blood Cells % 0 %; Platelet Count 282 10^3/cmm (130-400); Red Blood Count 4.98 10^6/uL (4.1-5.3); Red Cell Distribution Width 12.5 % (12.1-15.1); White Blood Count 10.7 10^3/uL (4.0-10.0)
--- NOTE | 2021-08-12 05:07 | XRR_ITS ---
PROCEDURE INFORMATION: Exam: XR Chest Exam date and time: 08/12/2021 5:07 AM Age: 31 years old Clinical indication: Pain; Chest pressure; Additional info: Cp TECHNIQUE: Imaging protocol: XR of the chest. Views: 1 view. COMPARISON: CR Chest 2 views* [id number] 08/02/2019 10:31 PM FINDINGS: Lungs: No consolidation. Pleural spaces: Unremarkable. No pleural effusion. No pneumothorax. Heart/Mediastinum: No cardiomegaly. Bones/joints: No acute fracture. XR/XR chest 1V portable [id number] IMPRESSION: No acute findings. Radiation Dose CTDIVOL = (mGy): DLP = (mGy-cm)
[2021-08-12 05:16] LABS: Troponin(5th) Baseline 6 ng/L (0-15)
[2021-08-12 05:17] LABS: Alanine Aminotransferase 12 U/L (0-41); Albumin Level 3.9 g/dL (3.5-5.2); Alkaline Phosphatase 93 IU/L (40-130); Anion Gap 15.4 (5-19); Aspartate Amino Transferase 9 U/L (0-40); Blood Urea Nitrogen 13 mg/dL (6-20); Calcium 8.8 mg/dL (8.5-10.5); Carbon Dioxide 25 mmol/L (22-29); Chloride 105 mmol/L (98-107); Globulin 2.4 g/dL (1.3-4.6); Glucose 137 mg/dL (65-115); Osmolality Calculated 296 mOsm/kg (285-295); Potassium 3.4 mmol/L (3.5-5.1); Sodium 142 mmol/L (136-145); Total Bilirubin 0.2 mg/dL (0.15-1.2); Total Protein 6.3 g/dL (6.6-8.7)
[2021-08-12] MEDS: HYDROcodone-acetaminophen 5-325 mg Tablet 1 TAB PO (06:00)
[2021-08-12 06:52] VITALS: BP 108/60; PULSE 80; RESP 21; O2SAT 97
--- NOTE | 2021-08-13 18:01 | PC.NURSE ---
Left voice mail
== END 2021-08-12 06:53 | disposition home or self-care (01) ==
PROVIDERS: Emergency Provider Emergency Medicine
DX: R07.89 Other chest pain (principal); M54.9 Dorsalgia, unspecified
CPT/HCPCS: 71045; 80053; 84484; 85025; 85378; 93005; 99283

== ENCOUNTER 2021-08-12 15:22 | Emergency (ER) | payer MEDICARE, MEDICAID, SELFPAY ==
[2021-08-12 15:31] VITALS: BP 129/90; PULSE 110; RESP 18; TEMP 37.1; O2SAT 97; BMI 27.6
--- NOTE | 2021-08-12 16:27 | ED_ITS ---
HPI - General Adult General: Chief complaint: General Medical Stated complaint: COVID EXPOSURE/FEVER/COUGH/SOB Time Seen by Provider: 08/12/21 15:42 History of Present Illness: HPI narrative: Patient is a 31-year-old male presents emergency with complaints of chest pain back pain sore throat. Patient was seen and evaluated earlier this morning chest pain and back pain. Patient says that now he has sore throat and feeling lightheaded. Patient would like to get a Covid swab. Patient said his chest pain and back pain has improved. Denies any nausea/vomiting, fever/chills, abdominal complaints at this time. Patient is concerned that I may have an infection I would like some antibiotics. Review of Systems Narrative: Constitutional: No fever, no chills. HEENT: No vision changes CV: No chest pain, no palpitations PULM: no cough, no dyspnea. GI: No abdominal pain, no N/V/D. : No dysuria MSKEL: No muscle pain SKIN: No new rashes, no lesions. NEURO: No headache, no focal weakness. HEME: No visible bruises PSYCH: Normal mood PFSH ED PFSH: Medical History (Updated 08/12/21 @ 16:45 by Jessica Russ MD) Generalized anxiety disorder Diagnosis from previous provider, Dr. Eugene. Marijuana abuse in remission Patient reports abstinence from illegal drug use. He does report using Kratom , one or two tablespoons per day. Recent surgical procedure on lower extremity Right leg Schizophrenia Longstanding diagnosis. Surgical History History of rectal surgery Physical Exam Narrative: EXAM NARRATIVE: Head: Atraumatic Eyes: PERRL, conjunctiva without injection ENT: Mucous membrane moist NECK: Supple, ROM intact LUNGS: LCTAB, no crackles/rhonchi CV: RRR ABDOMEN: Soft, nontender in all quadrants EXTREMITY: Normal ROM SKIN: No rash or erythema NEURO: Awake and alert, no focal motor deficits PSYCH: Normal mood and affect Course Vital Signs: Vital signs: Vital Signs Temperature 98.8 F 08/12/21 15:31 Pulse Rate 89 08/12/21 17:20 Respiratory Rate 16 08/12/21 17:20 Blood Pressure 147/96 08/12/21 17:20 Pulse Oximetry 98 08/12/21 17:20 MDM - General Adult MDM Narrative: Medical decision making narrative: 31-year-old male presents emergency room with persistent symptoms of sore throat, chest pain and back pain. On arrival, patient is afebrile. Physcial exam unremarkable. In triage, patient is noted to be tachycardic to the low 100s. However on my assessment 5 minutes later, patient's HR improved without any intervention. Patient is resting comfortably with no focal complaints at this time. Patient's been swabbed for Covid and influenza. I reviewed the chest x-ray from earlier this morning and did not see any signs of pneumonia. Patient also had blood work that was done earlier this morning, decision was made to defer blood work. Patient received IM Toradol with symptomatic improvement. I have discussed with patient that the present time, he does not qualify for antibiotics. However if he wants to follow-up with a primary care provider for further evaluation of symptom, I will be able to arrange so. Patient likes to do so. I have arranged patient for follow-up with outpatient provider for further evaluation of his chest pain back pain and sore throat. Disposition: Discharge. Patient counseled regarding diagnostic impression, treatment plan. Patient given ED strict return precautions to return for continuation, worsening, or development of new symptoms. Instructed to f/u w/ PCP regarding symptoms today. Patient verbalized understanding. Lab Data: Labs: Lab Results 08/12/21 16:55 SARS-CoV-2 Ag (Rap id) Negative (Negative) Discharge Plan Discharge Patient Disposition: Home Clinical Impression: Chest pain, Back pain Condition: Stable Prescriptions: No Action gabapentin 400 mg capsule 400 mg PO TID Qty: 90 RF: 0 hydroxyzine HCl 25 mg tablet 25 mg PO BID PRN (Reason: anxiety and insomnia) Qty: 60 RF: 0 olanzapine 10 mg tablet 10 mg PO BEDTIME 30 Days Qty: 30 RF: 0 sertraline 50 mg tablet 50 mg PO DAILY Qty: 30 RF: 0 diphenhydramine HCl [Benadryl Allergy] 25 mg tablet 25 mg PO Q6H PRN (Reason: allergic reaction) Qty: 30 RF: 0 Naprosyn 500 mg tablet 500 mg PO BID PRN (Reason: pain) Qty: 20 RF: 0 Discharge Orders: Discharge ED (Routine); Ordered 08/12/21 Ordered By: Jessica Russ Discharge Diet: Advance as tolerated Discharge Activity: Resume usual activity Patient Instructions: Chest Pain (ED) Activity Restrictions/Additional Instructions: Come back to the emergency room if your symptoms worsen, have any shortness of breath, fever/chills, dehydration, inability tolerate p.o., any difficulty breathing, or any new or concerning complaints. Come back to the emergency room if your chest pain worsens, have any fever or chills, worsening shortness of breath, worsening exertional lightheadedness, or any new or concerning complaints. Coding Level of Care Code ED Fire Extinguisher Inspector for Faina Pearson
[2021-08-12] MEDS: ketorolac 30 mg/mL INJ IM (16:50)
[2021-08-12 16:57] VITALS: BP 142/97; PULSE 88; RESP 17; O2SAT 99
[2021-08-12 17:20] VITALS: BP 147/96; PULSE 89; RESP 16; O2SAT 98
[2021-08-12 18:00] LABS: SARS Covid-2 Antigen Negative (Negative)
--- NOTE | 2021-08-13 12:19 | DCPLANNER ---
manager room had message to speak with patient about getting established with a primary care physician. Patient stated that he did want to get established with a primary care physician. manager room called [facility], spoke with [employer], gave clinic patients information, a follow up appointment was scheduled for Sunday, August 22, 2021 at 1:[address] Wiggins. manager room called patient and gave him the appointment information.
[2021-08-13 14:39] LABS: Coronavirus Test Green County Not Detected
--- NOTE | 2021-09-02 06:28 | DCPLANNER ---
Patient had a follow up appointment with Dr. Wiggins at [facility] - patient did attend appointment.
== END 2021-08-12 17:20 | disposition home or self-care (01) ==
PROVIDERS: Emergency Provider Emergency Medicine
DX: R07.9 Chest pain, unspecified (principal); M54.9 Dorsalgia, unspecified; R07.89 Other chest pain
CPT/HCPCS: 71045; 80053; 84484; 85025; 85378; 87426; 87635; 93005; 96372; 99283; J1885

== ENCOUNTER 2021-09-05 18:51 | Emergency (ER) | payer MEDICARE, MEDICAID, SELFPAY ==
[2021-09-05 19:13] VITALS: BP 134/74; PULSE 101; RESP 16; TEMP 37.7; O2SAT 100
--- NOTE | 2021-09-05 21:55 | ED_ITS ---
HPI - General Adult General: Chief complaint: Shortness of Breath/Dyspnea Stated complaint: INFECTION IN CHEST Time Seen by Provider: 09/05/21 21:42 History of Present Illness: HPI narrative: Patient arrives via ambulance requesting antibiotic and medicine for constipation. Patient refuses any lab work or x-rays. Patient had chest x-ray done last week. Patient says he feels the antibiotic would clear up his problems. Onset (ago): week(s) Associated symptoms: Reports cough and fevers/chills; Deny chest pain, dyspnea, headache(s), nausea, rash or vomiting Review of Systems Const: Reports: fever(s); Denies: chills or body aches Eyes: Denies: change in vision or blurry vision ENMT: Denies: throat pain or nasal congestion Card: Denies: chest pain or dyspnea on exertion Resp: Reports: non-productive cough; Denies: dyspnea or productive cough GI: Reports: other (Constipation); Denies: abdominal pain, nausea or vomiting : Denies: difficulty urinating Musc: Denies: extremity pain Skin/Breast: Denies: rash Neuro: Denies: headache(s) Psych: Denies: anxiety or depression Александр/Lymph: Denies: easy bruising PFSH ED PFSH: Medical History (Updated 09/05/21 @ 21:46 by APRIL Ross) Chronic chest wall pain Generalized anxiety disorder Diagnosis from previous provider, Dr. Eugene. Marijuana abuse in remission Patient reports abstinence from illegal drug use. He does report using Kratom , one or two tablespoons per day. Recent surgical procedure on lower extremity Right leg Schizophrenia Longstanding diagnosis. Surgical History History of rectal surgery Social History Smoking and tobacco status: former smoker Physical Exam Const: COMMON NORMALS: no acute distress, average body habitus and patient oriented x3 HENMT: COMMON NORMALS: normocephalic HEAD & SCALP: normal to inspection and normocephalic FACE & SINUS: normal facial exam Eye: COMMON NORMALS: conjunctivae normal GENERAL EYE: appearance normal, both eyes and all related structures CONJUNCTIVA: Yes conjunctivae normal Neck/C-Spine: COMMON NORMALS: no JVD Chest: COMMONS NORMALS: normal inspection of the chest Resp: COMMON NORMALS: normal respiratory effort and clear to auscultation bilaterally AUSCULTATION: clear to auscultation bilaterally Cardio: COMMON NORMALS: no JVD, regular rate and regular rhythm RATE: regular rate RHYTHM: regular rhythm GI: COMMON NORMALS: Normal to inspection, nondistended, normoactive bowel sounds present Extremity: COMMON NORMALS: normal to inspection and full ROM Neuro: COMMON NORMALS: patient oriented x3 Course Vital Signs: Vital signs: Vital Signs Temperature 99.8 F H 09/05/21 19:13 Pulse Rate 101 H 09/05/21 19:13 Respiratory Rate 16 09/05/21 19:13 Blood Pressure 134/74 09/05/21 19:13 Pulse Oximetry 100 09/05/21 19:13 Discharge Plan Discharge Patient Disposition: Home Clinical Impression: Bronchitis Constipation Qualifiers: Constipation type: slow transit constipation Qualified Code(s): K59.01 - Slow transit constipation Condition: Stable Prescriptions: New Zithromax Z-Garrison 250 mg tablet See Rx Instructions .ROUTE .COMPLEX Qty: 6 RF: 0 Dulcolax (bisacodyl) 10 mg suppository 10 mg FL DAILY PRN (Reason: constipation) Qty: 12 RF: 0 No Action meloxicam 15 mg tablet 15 mg PO DAILY Qty: 30 RF: 1 hydroxyzine HCl 25 mg tablet 25 mg PO BID PRN (Reason: anxiety and insomnia) Qty: 60 RF: 0 olanzapine 10 mg tablet 10 mg PO BEDTIME 30 Days Qty: 30 RF: 0 sertraline 50 mg tablet 50 mg PO DAILY Qty: 30 RF: 0 gabapentin 400 mg capsule 400 mg PO TID Qty: 90 RF: 0 Discharge Orders: Discharge ED (Routine); Ordered 09/05/21 Ordered By: aHnk Shaikh Referrals: Josue Wiggins MD [Primary Care Provider] - Discharge Diet: As Directed Discharge Activity: Resume usual activity Patient Instructions: Constipation (ED) Activity Restrictions/Additional Instructions: Follow-up with medical provider as directed. Take medications as prescribed. Return to the ER or your medical provider if condition worsens. Please read and understand discharge instructions. If any questions ask please. Use suppositories as directed. High-fiber diet. Drink plenty of fluids. Coding Level of Care Code ED Business Law Professor for Chg Fwd
[2021-09-05] MEDS: azithromycin 250 mg Tablet 500 MG PO (22:24)
[2021-09-05] MEDS: bisacodyl 5 mg Tablet 10 MG PO (22:25)
[2021-09-05 22:31] VITALS: BP 112/87; PULSE 80; RESP 16; TEMP 37.7; O2SAT 80
== END 2021-09-05 22:32 | disposition home or self-care (01) ==
PROVIDERS: Emergency Provider Nurse Practitioner Family; PCP Family Medicine Adult Medicine
DX: J40 Bronchitis, not specified as acute or chronic (principal); K59.01 Slow transit constipation; F41.1 Generalized anxiety disorder; Z87.891 Personal history of nicotine dependence
CPT/HCPCS: 99283; Q0144

== ENCOUNTER 2021-09-08 09:38 | Emergency (ER) | payer MEDICARE, MEDICAID, SELFPAY ==
[2021-09-08 09:58] VITALS: BP 122/74; PULSE 107; RESP 18; TEMP 37.7; O2SAT 95; BMI 28.2
--- NOTE | 2021-09-08 10:11 | CT_ITS ---
WS: [id number] CT ABDOMEN PELVIS TECHNIQUE: Contrast-enhanced CT of the abdomen and pelvis with coronal and sagittal reformatted image s. CLINICAL INFORMATION: abdominal pain, constipation, nausea, fevers COMPARISON: 2016 DLP: 1945.[address] scans at [facility] use at least one of these dose optimization techniques: automated e xposure control; mA and/or kV adjustment per patient size (includes targeted exams where dose is matc hed to clinical indication); or iterative reconstruction. FINDINGS: Hepatomegaly with diffuse fatty infiltration of the liver. Tiny left pleural effusion. Patchy atelect asis left lower lobe. Slight subsegmental atelectasis right lower lobe. Trace right pleural fluid. Ad renal glands are normal. Normal GE junction. Normal spleen. Moderate pericardial effusion. Fluid dist ended gallbladder with mild gallbladder wall thickening. No cholelithiasis. Normal pancreatic parench ymal enhancement. Normal portal vein and splenic vein. A few nonobstructing right renal parenchymal c alculi. No obstructing renal parenchymal calculi. No hydronephrosis. No evidence of high-grade small or large bowel obstruction. Normal caliber abdominal aorta. No abdomi nal or pelvic lymphadenopathy. IMPRESSION: 1. Hepatomegaly diffuse infiltration of the liver. Slight intrahepatic biliary ductal dilatation. 2. Mild gallbladder wall thickening with fluid distended gallbladder. This could be further evaluate d with ultrasound. No visualized cholelithiasis. 3. Moderate partially visualized pericardial effusion. 4. Trace left greater than right pleural fluid with bibasilar atelectasis. 5. No hydronephrosis in either kidney. No obstructing renal or ureteral calculi.
--- NOTE | 2021-09-08 10:12 | W.ED.ABDPA2 ---
HPI - Abdominal Pain General: Chief Complaint: Abdominal Pain Stated Complaint: ABD PAIN, POSS BOWEL OBSTRUCTION Time Seen by Provider: 09/08/21 09:38 Source: patient Mode of arrival: EMS Limitations: no limitations History of Present Illness: HPI narrative: Patient is a 31-year-old male who presents to ED today via EMS for complaints of abdominal pain. Patient was seen in our facility approximately 3 days ago for complaints of a productive cough and fevers as well as some constipation. He was prescribed azithromycin and stool softeners which she has not filled. Patient states I just feel like crap . He is reporting fevers and cough continuing, SOB fatigue, headache, abdominal pain and constipation. States he has not had a bowel movement in 4 days. No rectal swelling, fullness, or rectal bleeding. No urinary symptoms. No sick contacts. Received first Moderna COVID vaccination recently. MD elicited complaint: abdominal pain Onset (ago): day(s) Pain Consistency: constant Location: Diffuse Severity: severe Pain scale (0-10): 8 Radiation: none Migration to: no migration Exacerbating factors: nothing Relieving factors: nothing Associated Symptoms: Reports constipation, fever(s) (low grade 99.8) and nausea; Denies change in bowel habits, diarrhea, dysuria, hematochezia, syncope and vomiting Review of Systems Const: Reports: fever(s) (low grade 99.8) and fatigue ENMT: Denies: throat pain, odynophagia, nasal discharge or nasal congestion Card: Denies: chest pain, palpitations, irregular heart rhythm, edema, lightheadedness, syncope or pre-syncope Resp: Reports: dyspnea and non-productive cough; Denies: wheezing or hemoptysis GI: Reports: abdominal pain, nausea and constipation; Denies: vomiting, diarrhea, change in bowel habits or hematochezia : Denies: flank pain or dysuria Musc: Denies: neck pain, back pain, extremity pain or joint pain Skin/Breast: Denies: rash Neuro: Reports: headache(s); Denies: numbness in extremities, weakness in extremities, sensory changes or dizziness [facility] PFSH: Medical History (Updated 09/05/21 @ 21:46 by APRIL Ross) Chronic chest wall pain Generalized anxiety disorder Diagnosis from previous provider, Dr. Eugnee. Marijuana abuse in remission Patient reports abstinence from illegal drug use. He does report using Kratom , one or two tablespoons per day. Recent surgical procedure on lower extremity Right leg Schizophrenia Longstanding diagnosis. Surgical History History of rectal surgery Social History Smoking and tobacco status: former smoker Physical Exam Const: COMMON NORMALS: no acute distress, patient oriented x3, no limitations and alert GENERAL APPEARANCE: cooperative and comfortable NUTRITIONAL APPEARANCE: overweight ORIENTATION/CONSCIOUSNESS: Yes awake, Yes oriented to person, Yes oriented to place and Yes oriented to time OTHER: appears slightly pale HENMT: COMMON NORMALS: normocephalic and atraumatic HEAD & SCALP: normocephalic and atraumatic Neck/C-Spine: COMMON NORMALS: full ROM, no lymphadenopathy and no meningeal signs Resp: COMMON NORMALS: normal respiratory effort and clear to auscultation bilaterally AUSCULTATION: clear to auscultation bilaterally Cardio: COMMON NORMALS: regular rhythm RATE: tachycardic RHYTHM: regular rhythm GI: COMMON NORMALS: Normal to inspection, nondistended, normoactive bowel sounds present, Soft to palpation, No hepatosplenomegaly present and no masses INSPECTION: Yes normal to inspection PALPATION: Yes Soft to palpation, Yes Tenderness to palpation present (GI) (diffuse) and Yes No hepatosplenomegaly present Extremity: COMMON NORMALS: normal to inspection Neuro: COMMON NORMALS: patient oriented x3 SENSORIUM/ORIENTATION: Yes alert, Yes oriented to person, Yes oriented to place and Yes oriented to time MENINGEAL SIGNS: Yes no meningeal signs Skin: COMMON NORMALS: no rashes or lesions noted GENERAL SKIN EXAM: no rashes or lesions noted Course Vital Signs: Vital signs: Vital Signs Temperature 99.8 F H 09/08/21 09:58 Pulse Rate 107 H 09/08/21 09:58 Respiratory Rate 18 09/08/21 09:58 Blood Pressure 122/74 09/08/21 09:58 Pulse Oximetry 95 09/08/21 09:58 MDM - Abdominal Pain MDM Narrative: Medical decision making narrative: Patient was placed in COVID waiting room as there were no medical/ED beds available and he could not be placed in VF he was a COVID rule out. Plan was for patient to move to a medical bed when appropriate has a noted on his labs during triage he was anemic with a hemoglobin of 10.2 compared to 14 approximately a month ago. CT scan also with abnormal findings. Patient apparently eloped from the COVID waiting room (I RN was aware as they removed IV) but I was not able to speak to patient regarding lab or imaging findings before he left the ED. Lab Data: Labs: Lab Results 09/08/21 09/08/21 09/08/21 11:07 11:07 11:07 WBC 15.6 10^3/uL H 10 ^3/uL (4.0-10.0) RBC 3.68 10^6/uL L 10 ^6/uL (4.1-5.3) Hgb 10.2 g/dL L g/dL (11.7-16.6) Hct 31.3 % L % (42.0-52.0) MCV 85.1 fl fl (80-94) MCH 27.7 pg L pg (28.0-34.0) MCHC 32.6 g/dL g/dL (30.0-36.0) RDW 12.2 % % (12.1-15.1) Plt Count 339 10^3/cmm 10^3 /cmm (130-400) MPV 10.5 fL H fL (7.4-10.4) Neut % (Auto) 67.6 % % Lymph % (Auto) 15.4 % % Bourbon % (Auto) 15.6 % % Eos % (Auto) 0.4 % % Baso % (Auto) 0.4 % % Neut # (Auto) 10.55 10^3/uL H 1 0^3/uL (1.8-7.7) Lymph # (Auto) 2.4 10^3/uL 10^3/ uL (0.8-4.8) Bourbon # (Auto) 2.4 10^3/uL H 10^ 3/uL (0.2-0.9) Eos # (Auto) 0.1 10^3/uL 10^3/ uL (0.0-0.8) Baso # (Auto) 0.1 10^3/uL 10^3/ uL (0.0-0.1) Nucleated RBC % (a uto) 0 % % Nucleated RBCs # 0.0 /100WBC /100W BC Sodium 133 mmol/L L mmol /L (136-145) Potassium 4.5 mmol/L mmol/L (3.5-5.1) Chloride 96 mmol/L L mmol/ L (98-107) Carbon Dioxide 23 mmol/L mmol/L (22-29) Anion Gap 18.5 (5-19) BUN 7 mg/dL mg/dL (6-20) Creatinine 0.9 mg/dL mg/dL (0.7-1.2) GFR Calculation 97.8 mL/min mL/mi n (90-130) Glucose 104 mg/dL mg/dL (65-115) Calculated Osmolal ity 274 mOsm/kg L mOs m/kg (285-295) Lactic Acid 0.6 mmol/L mmol/L (0.5-2.2) Calcium 8.3 mg/dL L mg/dL (8.5-10.5) Total Bilirubin 0.8 mg/dL mg/dL (0.15-1.2) AST 30 U/L U/L (0-40) ALT 29 U/L U/L (0-41) Alkaline Phosphata se 158 IU/L H IU/L (40-130) Total Protein 7.1 g/dL g/dL (6.6-8.7) Albumin 3.5 g/dL g/dL (3.5-5.2) Globulin 3.6 g/dL g/dL (1.3-4.6) Lipase 12 U/L L U/L (13-60) Imaging Data ^: CXR: Radiologist's impression: [address] [address] XRay Report Signed Patient: Korey Stevenson Unit #: [id number] : 1990 Age/Sex: 31 / M ADM Date: 09/08/21 Loc: ER Room/Bed: Attending Dr: Ordering Provider/Ordering MD: Odalys Peters Date of Service: 09/08/21 Procedure(s): XR chest 1V portable [id number] Accession Number(s): [id number] Report Number: [id number] WS: [email or web address] Exam: XR chest 1V portable [id number] Date/Time of Exam: 09/08/2021 10:25 AM Reason For Exam: cough, fevers, SOB Comparison 08/12/2021. Plaque atelectasis in the left base. No infiltrates. No pleural effusions. No pneumothorax. Cardiomediastinal silhouette is unremarkable for technique. Regional bony elements are intact. XR/XR chest 1V portable [id number] IMPRESSION: 1. Left basal plaque atelectasis. No acute process. Dictated By: Saleem Jackson DO Signed By: Saleem Jackson DO Signed Date/Time: 09/08/21 1039 DD/ 1038 CT Abd/Pel: Radiologist's impression: [facility] [address] [place] [place] [address] CT Scan Report Signed Patient: Korey Stevenson Unit #: [id number] : 1990 Age/Sex: 31 / M ADM Date: 09/08/21 Loc: ER Room/Bed: Attending Dr: Ordering Provider/Ordering MD: Odalys Peters Date of Service: 09/08/21 Procedure(s): CT abdomen pelvis w con* [id number] Accession Number(s): [id number] Report Number: [id number] WS: [id number] CT ABDOMEN PELVIS TECHNIQUE: Contrast-enhanced CT of the abdomen and pelvis with coronal and sagittal reformatted images. CLINICAL INFORMATION: abdominal pain, constipation, nausea, fevers COMPARISON: 2016 DLP: 1945.[address] scans at [facility] use at least one of these dose optimization techniques: automated exposure control; mA and/or kV adjustment per patient size (includes targeted exams where dose is matched to clinical indication); or iterative reconstruction. FINDINGS: Hepatomegaly with diffuse fatty infiltration of the liver. Tiny left pleural effusion. Patchy atelectasis left lower lobe. Slight subsegmental atelectasis right lower lobe. Trace right pleural fluid. Adrenal glands are normal. Normal GE junction. Normal spleen. Moderate pericardial effusion. Fluid distended gallbladder with mild gallbladder wall thickening. No cholelithiasis. Normal pancreatic parenchymal enhancement. Normal portal vein and splenic vein. A few nonobstructing right renal parenchymal calculi. No obstructing renal parenchymal calculi. No hydronephrosis. No evidence of high-grade small or large bowel obstruction. Normal caliber abdominal aorta. No abdominal or pelvic lymphadenopathy. IMPRESSION: 1. Hepatomegaly diffuse infiltration of the liver. Slight intrahepatic biliary ductal dilatation. 2. Mild gallbladder wall thickening with fluid distended gallbladder. This could be further evaluated with ultrasound. No visualized cholelithiasis. 3. Moderate partially visualized pericardial effusion. 4. Trace left greater than right pleural fluid with bibasilar atelectasis. 5. No hydronephrosis in either kidney. No obstructing renal or ureteral calculi. Dictated By: Beka Correa MD Signed By: Beka Correa MD Signed Date/Time: 09/08/21 1140 DD/ 1132 Discharge Plan Discharge Patient Disposition: Left Against Medical Advice Prescriptions: No Action meloxicam 15 mg tablet 15 mg PO DAILY Qty: 30 RF: 1 hydroxyzine HCl 25 mg tablet 25 mg PO BID PRN (Reason: anxiety and insomnia) Qty: 60 RF: 0 olanzapine 10 mg tablet 10 mg PO BEDTIME 30 Days Qty: 30 RF: 0 sertraline 50 mg tablet 50 mg PO DAILY Qty: 30 RF: 0 gabapentin 400 mg capsule 400 mg PO TID Qty: 90 RF: 0 Zithromax Z-Garrison 250 mg tablet See Rx Instructions .ROUTE .COMPLEX Qty: 6 RF: 0 Dulcolax (bisacodyl) 10 mg suppository 10 mg VT DAILY PRN (Reason: constipation) Qty: 12 RF: 0 Referrals: Josue Wiggins MD [Primary Care Provider] - Coding Level of Care Code ED Entry Level Account Manager for Chg Fwd Exam Comprehensive
--- NOTE | 2021-09-08 10:20 | XR_ITS ---
WS: [email or web address] Exam: XR chest 1V portable [id number] Date/Time of Exam: 09/08/2021 10:25 AM Reason For Exam: cough, fevers, SOB Comparison 08/12/2021. Plaque atelectasis in the left base. No infiltrates. No pleural effusions. No pneumothorax. Cardiomed iastinal silhouette is unremarkable for technique. Regional bony elements are intact. XR/XR chest 1V portable [id number] IMPRESSION: 1. Left basal plaque atelectasis. No acute process.
[2021-09-08] MEDS: iohexol 300 mg/mL 100 mL Btl IV (10:48)
[2021-09-08 11:18] LABS: Basophils # 0.1 10^3/uL (0.0-0.1); Basophils % 0.4 %; Eosinophils # 0.1 10^3/uL (0.0-0.8); Eosinophils % 0.4 %; Hematocrit 31.3 % (42.0-52.0); Hemoglobin 10.2 g/dL (11.7-16.6); Lymphocytes # 2.4 10^3/uL (0.8-4.8); Lymphocytes % 15.4 %; Mean Corpuscular HGB Conc 32.6 g/dL (30.0-36.0); Mean Corpuscular Hemoglobin 27.7 pg (28.0-34.0); Mean Corpuscular Volume 85.1 fl (80-94); Mean Platelet Volume 10.5 fL (7.4-10.4); Monocytes # 2.4 10^3/uL (0.2-0.9); Monocytes % 15.6 %; Neutrophils # 10.55 10^3/uL (1.8-7.7); Neutrophils % 67.6 %; Nucleated Red Blood Cells % 0 %; Platelet Count 339 10^3/cmm (130-400); Red Blood Count 3.68 10^6/uL (4.1-5.3); Red Cell Distribution Width 12.2 % (12.1-15.1); White Blood Count 15.6 10^3/uL (4.0-10.0)
[2021-09-08 11:44] LABS: Lactic Sepsis W/Reflex 0.6 mmol/L (0.5-2.2)
[2021-09-08 11:45] LABS: Alanine Aminotransferase 29 U/L (0-41); Albumin Level 3.5 g/dL (3.5-5.2); Alkaline Phosphatase 158 IU/L (40-130); Anion Gap 18.5 (5-19); Aspartate Amino Transferase 30 U/L (0-40); Blood Urea Nitrogen 7 mg/dL (6-20); Calcium 8.3 mg/dL (8.5-10.5); Carbon Dioxide 23 mmol/L (22-29); Chloride 96 mmol/L (98-107); Creatinine Clr Calc Pharmacy 148.7267; Globulin 3.6 g/dL (1.3-4.6); Glomerular Filtration Rate 97.8 mL/min (90-130); Glucose 104 mg/dL (65-115); Lipase 12 U/L (13-60); Osmolality Calculated 274 mOsm/kg (285-295); Potassium 4.5 mmol/L (3.5-5.1); Sodium 133 mmol/L (136-145); Total Bilirubin 0.8 mg/dL (0.15-1.2); Total Protein 7.1 g/dL (6.6-8.7)
== END 2021-09-08 12:34 | disposition left against medical advice (07) ==
LOC: ER 09:53
PROVIDERS: Emergency Provider Physician Assistant; PCP Family Medicine Adult Medicine
DX: Z53.21 Procedure and treatment not carried out due to patient leaving prior to being seen by health care provider (principal)
CPT/HCPCS: 71045; 74177; 80053; 83605; 83690; 85025; Q9967

== ENCOUNTER → 2021-10-27 08:08 | Outpatient (BNVA) | payer MEDICARE, SELFPAY | PROVIDERS: PCP Family Medicine Adult Medicine; Visit Provider Psychiatry & Neurology Psychiatry | DX: F41.1 Generalized anxiety disorder (principal); F20.3 Undifferentiated schizophrenia; F17.200 Nicotine dependence, unspecified, uncomplicated; F15.10 Other stimulant abuse, uncomplicated; F12.11 Cannabis abuse, in remission | CPT/HCPCS: 99214 ==

== ENCOUNTER → 2021-11-10 14:43 | Outpatient (BNVA) | payer MEDICARE, SELFPAY | PROVIDERS: PCP Family Medicine Adult Medicine; Visit Provider Surgery | DX: Z20.822 Contact with and (suspected) exposure to COVID-19 (principal) | CPT/HCPCS: 87635 ==

== ENCOUNTER → 2021-11-14 15:43 | Outpatient (BNVA) | payer MEDICARE, SELFPAY | PROVIDERS: PCP Family Medicine Adult Medicine; Visit Provider Surgery | DX: Z20.822 Contact with and (suspected) exposure to COVID-19 (principal) | CPT/HCPCS: 87635 ==

== ENCOUNTER 2021-11-17 11:02 | Day surgery (SDC) | payer MEDICARE, SELFPAY ==
[2021-11-17] VITALS (7 sets, daily range): BP systolic 127–146; BP diastolic 87–101; PULSE 78–87; RESP 16–18; TEMP 36.3–36.6; O2SAT 95–99
--- NOTE | 2021-11-17 11:17 | W.PM.OPSFHP ---
Same Day Surgery H&P Indication for Procedure/HPI DATE OF PROCEDURE: November 17, 2021 CHIEF COMPLAINT/INDICATIONFOR SURGICAL PROCEDURE: excision mass PREOP DIAGNOSIS: lipomas PLANNED PROCEDURE: Operation Date: 11/17/21 12:30 Proposed Procedures p Excision Mass forehead, abdomen, back and left 4th finger 47815 x4/d17.9(Not Applicable) - Los Durán MD Medications/Allergies* Allergies/Adverse Reactions Allergy/AdvReac Type Severity Reaction Status Date / Time asenapine [From Saphris] AdvReac Severe Throat Verified 11/14/21 15:05 swelled lamotrigine AdvReac Intermediate Hives/Itchi Verified 11/14/21 15:05 ng Pertinent History/Comorbid Conditions* Medical History (Updated 09/13/21 @ 00:00 by ) Anemia Chronic chest wall pain Generalized anxiety disorder Diagnosis from previous provider, Dr. Eugene. Marijuana abuse in remission Patient reports abstinence from illegal drug use. He does report using Kratom , one or two tablespoons per day. Recent surgical procedure on lower extremity Right leg Schizophrenia Longstanding diagnosis. 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
[2021-11-17] MEDS: sodium chloride 0.9% 1,000 ML 30 ML IV (11:49)
--- NOTE | 2021-11-17 11:49 | ANES.PREANE2 ---
Pre-Anesthetic Assessment Height/Weight: Height 1.88 m Temp Pulse Resp BP Pulse Ox 97.4 F L 87 16 132/101 95 11/17/21 11:07 11/17/21 11:07 11/17/21 11:07 11/17/21 11:07 11/17/21 11:07 Preop Diagnosis: lipomas Operation Date: 11/17/21 12:30 Proposed Procedures p Excision Mass forehead, abdomen, back and left 4th finger 88840 x4/d17.9(Not Applicable) - Los Durán MD Familial anesthetic complications: None Was Beta Blair taken within 24 hours: N/A Was Clonidine taken within 24 hours: N/A Last intake: Intake Last Liquid Date 11/16/21 Last Liquid Time 23:55 Last Solid Date 11/16/21 Last Solid Time 23:55 Social Tobacco and No alcohol Exam alert, oriented x 3, clear to auscultation bilaterally and regular rate & rhythm Airway Submandibular: within normal limits Cervical ROM: within normal limits Mallampati: Class II Dentition: chipped Pulmonary Chronic Obstructive Pulmonary Disease Metabolic Morbid Obesity Neuropsych Anxiety and Depression Schizo Anesthetic Plan ASA status: 3 Anesthesia: General Medications/Allergies Home Medications Medication Instructions Recorded Confirmed Last Taken Type hydroxyzine HCl 25 mg tablet 25 mg PO BID PRN #60 tab 07/31/21 11/17/21 11/10/21 Rx sertraline 50 mg tablet 50 mg PO DAILY #30 tab 09/22/21 11/17/21 11/16/21 Rx buspirone 10 mg tablet 10 mg PO BID #60 tab 10/27/21 11/17/21 11/16/21 Rx gabapentin 400 mg capsule 400 mg PO TID #90 cap 10/27/21 11/17/21 11/16/21 Rx perphenazine 2 mg tablet 2 mg PO BID #60 tab 10/27/21 11/17/21 11/16/21 Rx Allergies Allergy/AdvReac Type Severity Reaction Status Date / Time asenapine [From Saphris] AdvReac Severe Throat Verified 11/14/21 15:05 swelled lamotrigine AdvReac Intermediate Hives/Itchi Verified 11/14/21 15:05 [facility] Anesthesia Medical History Anemia Chronic chest wall pain Generalized anxiety disorder Diagnosis from previous provider, Dr. Eugene. Marijuana abuse in remission Patient reports abstinence from illegal drug use. He does report using Kratom , one or two tablespoons per day. Recent surgical procedure on lower extremity Right leg Schizophrenia Longstanding diagnosis. Surgical History History of rectal surgery Social History Smoking and tobacco status: current every day smoker Data Anesthesia Cardiac Studies: No Data to Display
[2021-11-17] MEDS: HYDROmorphone 1 mg/mL INJ 1 mL 0.5 MG IVP (11:56)
[2021-11-17] MEDS: neomycin-poly-bacitracin oint 28 gm 1 APPLIC TOPICAL (12:54)
--- NOTE | 2021-11-17 13:10 | PM.OP ---
Operative Report Date of procedure: November 17, 2021 Pre-op diagnosis: 1. Subcutaneous mass right forehead 2. Subcutaneous mass epigastric area 3. Subcutaneous mass right back 4. Skin lesion dorsal aspect of left ring finger Post-op diagnosis: 1. 0.5 x 0.5 cm subcutaneous mass right forehead 2. 2 x 2 and 1.5 x 1.5 cm subcutaneous mass epigastric area 3. 3 x 3 cm subcutaneous mass right back 4. 0.5 x 0.5 cm skin lesion left ring finger on the dorsal aspect Procedure done: 1. Excision of 0.5 x 0.5 cm subcutaneous mass right forehead 2. Excision of 2 x 2 and 1.5 x 1.5 cm subcutaneous mass epigastric area 3. Excision of 3 x 3 cm subcutaneous mass right back 4. Excision of 0.5 x 0.5 cm skin lesion left ring finger on the dorsal aspect Specimens removed/disposition: 1. 0.5 x 0.5 cm subcutaneous mass right forehead 2. 2 x 2 and 1.5 x 1.5 cm subcutaneous mass epigastric area 3. 3 x 3 cm subcutaneous mass right back 4. 0.5 x 0.5 cm skin lesion left ring finger on the dorsal aspect Surgeon: Los Durán Anesthesia: General Condition: stable Disposition: PACU Procedure: The patient was taken to the operating room and intubated under general anesthesia after IV antibiotic had been administered. The abdomen, her forehead and left hand was prepped and draped in a sterile manner. 1% lidocaine with 0.2% Marcaine was infiltrated around the palpable lesions. Using a 15 blade 1.5 cm incision was made over the palpable mass on the right forehead, subcutaneous tissue was divided and the subcutaneous mass was dissected free from the surrounding tissue and sent to pathology. There was a arterial bleeding which was controlled with cautery. The subcutaneous tissue was closed using interrupted 3-0 Vicryl suture and skin was closed with Dermabond. Using 15 blade a 3 cm incision was made over the palpable mass in the epigastric area and a 2 x 2 and a 1.5 x 1.5 cm lipoma was dissected free from the surrounding subcutaneous tissue and sent to pathology. Hemostasis was ensured with cautery, subcutaneous tissue approximated using interrupted 3-0 Vicryl suture and skin was closed using a running subcuticular 4-0 Monocryl suture and Dermabond. Using 15 blade a 3 cm incision was made over the palpable mass in the right back after the patient was placed in the left lateral position and a 3 x 3 cm lipoma was dissected free from the surrounding subcutaneous tissue and sent to pathology. Hemostasis was ensured with cautery, subcutaneous tissue approximated using interrupted 3-0 Vicryl suture and skin was closed using a running subcuticular 4-0 Monocryl suture and Dermabond. Using electrocautery the 0.5 x 0.5 cm mass on the plantar aspect of the left fourth finger was excised and hemostasis ensured and the wound was covered with antibiotic cream and Band-Aids. The patient was extubated and transferred to recovery room in stable condition.
[2021-11-17] MEDS: HYDROcodone-acetaminophen 5-325 mg Tablet 1 TAB PO (13:49)
--- NOTE | 2021-11-17 14:32 | ANE.PACU2 ---
Inpatient post-anesthesia follow up: Airway intact: Yes Vital signs: Temperature 98 F Pulse Rate 78 Respiratory Rate 17 Blood Pressure 131/100 Pulse Oximetry 97 Oxygen Delivery Me thod Room Air Oxygen Flow Rate 6 Fraction of Inspir ed Oxygen Hydration adequate: Yes Nausea and vomiting: No Pain level: 1 Mental status: Baseline
== END 2021-11-17 14:02 | disposition home or self-care (01) ==
PROVIDERS: PCP Family Medicine Adult Medicine; Visit Provider Surgery
PROC: (CPT 11402; principal; 2021-11-17 12:20)
DX: D17.0 Benign lipomatous neoplasm of skin and subcutaneous tissue of head, face and neck (principal); D17.1 Benign lipomatous neoplasm of skin and subcutaneous tissue of trunk; D17.39 Benign lipomatous neoplasm of skin and subcutaneous tissue of other sites; F41.9 Anxiety disorder, unspecified; F17.210 Nicotine dependence, cigarettes, uncomplicated; J44.9 Chronic obstructive pulmonary disease, unspecified; E66.01 Morbid (severe) obesity due to excess calories
CPT/HCPCS: 11402; 11403; 11420; 11440; 12053; 88304; 88307; J0690; J1100; J1170; J2250; J2405; J2704; J3010; J3490; J7030

== ENCOUNTER 2021-12-05 22:20 | Emergency (ER) | payer MEDICARE, SELFPAY ==
[2021-12-05 22:25] VITALS: BP 132/78; PULSE 100; RESP 18; TEMP 36.6; O2SAT 98; BMI 28.2
[2021-12-05 23:54] LABS: Add Urine Microscopic? YES; Bilirubin Urine Neg (Negative); Blood Urine 3+ (Negative); Glucose Urine UA Norm (Normal); Ketones Urine Negative (Negative); Leukocyte Esterase Urine Trace (Negative); Nitrate Urine Negative (Negative); Protein Urine 3+ (Negative); Specific Gravity, Urine 1.025 (1.005-1.030); Urine Color Yellow (Yellow); Urobilinogen Urine Norm (Negative); pH Urine 5 (5-7)
[2021-12-05 23:55] LABS: Add Urine Culture? Yes; Bacteria Urine TRACE /hpf; RBC Urine 25-40 /hpf (0-2); Squamous Epithelial Cell Urine 0-4 /hpf (0-5); WBC Urine 0-4 /hpf (0-5)
[2021-12-06] VITALS (7 sets, daily range): BP systolic 130–160; BP diastolic 77–95; PULSE 60–80; RESP 20; O2SAT 97–98
--- NOTE | 2021-12-06 00:12 | W.ED.MALEGU ---
HPI - Male Genitourinary General: Chief complaint: Urogenital-Male Stated complaint: Kidney Stones Time Seen by Provider: 12/05/21 23:03 History of Present Illness: Patient is a 31-year-old male comes to the ED with right flank pain. Patient has a past medical history of kidney stones. Symptoms started about 4 days ago. Pain is located in the right flank. He rates it currently an 8 out of 10. He says his pain is similar to his past kidney stone. Reports a little bit of nausea but denies any emesis. He is having some decreased urine frequency as well. Denies any fever, chills, vomiting, dysuria or bowel symptoms. Associated symptoms: Deny dysuria, hematuria, nausea or vomiting Review of Systems Const: Denies: fever(s), chills or fatigue Eyes: Denies: change in vision or eye discomfort ENMT: Denies: throat pain, odynophagia, nasal discharge or nasal congestion Card: Denies: chest pain, palpitations, edema, swelling of feet/ankles, dyspnea on exertion or orthopnea Resp: Denies: dyspnea, productive cough or non-productive cough GI: Denies: abdominal pain, nausea, vomiting, diarrhea, constipation or hematochezia : Reports: flank pain (Right side) and urinary frequency (Decreased); Denies: difficulty urinating, dysuria or hematuria Musc: Denies: neck pain, back pain or extremity swelling Skin/Breast: Denies: rash or new lesions Neuro: Denies: headache(s), numbness in extremities or weakness in extremities PFS ED PFSH: Medical History Anemia Chronic chest wall pain Generalized anxiety disorder Diagnosis from previous provider, Dr. Eugene. Marijuana abuse in remission Patient reports abstinence from illegal drug use. He does report using Kratom , one or two tablespoons per day. Schizophrenia Longstanding diagnosis. Surgical History H/O excision of mass (11/17/21) right forehead, epigastrium, right back History of rectal surgery Social History Smoking and tobacco status: current every day smoker Physical Exam Const: COMMON NORMALS: no acute distress, patient oriented x3, healthy appearing and alert GENERAL APPEARANCE: cooperative and comfortable HENMT: COMMON NORMALS: normocephalic HEAD & SCALP: normocephalic MOUTH: Normal oral and palatal mucosa present THROAT: posterior oropharynx normal and uvula midline Neck/C-Spine: COMMON NORMALS: supple GENERAL: Yes normal visual inspection Resp: COMMON NORMALS: normal respiratory effort, No retractions, No use of accessory muscles and clear to auscultation bilaterally AUSCULTATION: clear to auscultation bilaterally Cardio: COMMON NORMALS: regular rate, regular rhythm, S1 normal heart sound present, S2 normal heart sound present, No gallops present (Cardio), No clicks present (Cardio), No murmurs present (Cardio) and Peripheral pulses 2+ throughout RATE: regular rate RHYTHM: regular rhythm HEART SOUNDS: S1 normal heart sound present and S2 normal heart sound present PERIPHERAL PULSES: Peripheral pulses 2+ throughout GI: COMMON NORMALS: Normal to inspection, nondistended, normoactive bowel sounds present, Soft to palpation, non-tender and no masses PALPATION: Yes Soft to palpation : BLADDER/KIDNEY EXAM: Yes CVA tenderness on the right Back/Pelvis: GENERAL BACK: Yes CVA tenderness Extremity: COMMON NORMALS: normal to inspection Neuro: COMMON NORMALS: patient oriented x3 and moves all extremities SENSORIUM/ORIENTATION: Yes alert Skin: GENERAL SKIN EXAM: dry skin Course Vital Signs: Vital signs: Vital Signs Temperature 98 F 12/05/21 22:25 Pulse Rate 60 12/06/21 02:38 Respiratory Rate 20 H 12/06/21 02:21 Blood Pressure 134/88 12/06/21 02:38 Pulse Oximetry 98 12/06/21 02:38 [facility] - Male Medical Decision Making Patient is a 31-year-old male comes to the ED with right flank pain. He has a history of kidney stones and says this pain is similar to his last kidney stone. Vitals stable. He has some right CVA tenderness upon exam. Rest of exam is benign. CBC, CMP were unremarkable. UA showed a lot of red blood cells. CT of the abdomen showed a 5 x 4 mm stone in right UVJ. Patient was given IV morphine, Toradol, fluids and tamsulosin here in the ED and his symptoms improved. I placed order with case management for patient be referred to Dr. Rascon for follow-up. Patient diagnosed with right sided kidney stone. patient discharged home with a prescription for tamsulosin, naproxen and [place] for pain. He was told case packer will contact them in the next several days to set up an appoint with Dr. Rascon. Instructed on straining his urine to catch stone as well. Return to ED precautions given. Patient understood and agree with plan. Lab Data I reviewed the patient's lab results. : 12/06/21 00:26 12/06/21 00:26 Radiology Impressions Abdomen/Pelvis CT 12/06/21 00:16 IMPRESSION: 1. Interval disappearance of a stone from within the right kidney and appearance of the 5.5 x 4 mm stone in the right UVJ causing [id number] obstruction. Continued presence of 1 stone in the right kidney. 2. Interval clearance of the pleural effusions, pericardial effusion and the bibasilar atelectasis. 3. Interval increased fat in the anterior bladder wall raising the possibility of chronic inflammation. 4. Continued increased fat in the right colonic wall. Increased fat in the wall of the terminal ileum now clearly evident. Chronic inflammation not excluded. No apparent acute disease of the GI tract. Other findings detailed above. Laboratory Results WBC 9.0 10^3/uL (4.0-10.0) 12/06/21 00:26 RBC 5.23 10^6/uL (4.1-5.3) 12/06/21 00:26 Hgb 14.4 g/dL (11.7-16.6) 12/06/21 00: Hct 41.6 % (42.0-52.0) L 12/06/21: MCV 79.5 fl (80-94) L 12/06/21 00:26 MCH 27.5 pg (28.0-34.0) L 12/06/21 00: MCHC 34.6 g/dL (30.0-36.0) 12/06/21 00: RDW 14.2 % (12.1-15.1) 12/06/21 00: Plt Count 249 10^3/cmm (130-400) 12/06/21 00: MPV 10.5 fL (7.4-10.4) H 12/06/21: Neut % (Auto) 52.9 % 12/06/21 00:26 Lymph % (Auto) 33.7 % 12/06/21 00:26 [place] % (Auto) 10.3 % 12/06/21 00: Eos % (Auto) 2.1 % 12/06/21 00:26 Baso % (Auto) 0.8 % 12/06/21 00:26 Neut # (Auto) 4.76 10^3/uL (1.8-7.7) 12/06/21 00: Lymph # (Auto) 3.0 10^3/uL (0.8-4.8) 12/06/21 00:26 [place] # (Auto) 0.9 10^3/uL (0.2-0.9) 12/06/21 00: Eos # (Auto) 0.2 10^3/uL (0.0-0.8) 12/06/21 00: Baso # (Auto) 0.1 10^3/uL (0.0-0.1) 12/06/21 00:26 Nucleated RBC % (auto) 0 % 12/06/21 00: Nucleated RBCs # 0.0 /100WBC 12/06/21 00:26 Sodium 138 mmol/L (136-145) 12/06/21 00:26 Potassium 4.0 mmol/L (3.5-5.1) 12/06/21 00:26 Chloride 104 mmol/L (98-107) 12/06/21 00:26 Carbon Dioxide 22 mmol/L (22-29) 12/06/21 00:26 Anion Gap 16.0 (5-19) 12/06/21 00:26 BUN 16 mg/dL (6-20) 12/06/21 00:26 Creatinine 1.0 mg/dL (0.7-1.2) 12/06/21 00:26 GFR Calculation 86.6 mL/min (90-130) L 12/06/21 00:26 Glucose 82 mg/dL (65-115) 12/06/21 00:26 Calculated Osmolality 286 mOsm/kg (285-295) 12/06/21 00:26 Calcium 9.2 mg/dL (8.5-10.5) 12/06/21 00:26 Total Bilirubin 0.2 mg/dL (0.15-1.2) 12/06/21 00:26 AST 16 U/L (0-40) 12/06/21 00:26 ALT 14 U/L (0-41) 12/06/21 00:26 Alkaline Phosphatase 112 IU/L (40-130) 12/06/21 00:26 Total Protein 7.3 g/dL (6.6-8.7) 12/06/21 00:26 Albumin 4.3 g/dL (3.5-5.2) 12/06/21 00:26 Globulin 3.0 g/dL (1.3-4.6) 12/06/21 00:26 Urine Color Yellow (Yellow) 12/05/21 23:39 Urine Appearance Sl cloudy (CLEAR) A 12/05/21 23:39 Urine pH 5 (5-7) 12/05/21 23:39 Ur Specific [place] 1.025 (1.005-1.030) 12/05/21 23:39 Urine Protein 3+ (Negative) H 12/05/21 23:39 Urine Glucose (UA) Norm (Normal) 12/05/21 23:39 Urine Ketones Negative (Negative) 12/05/21 23:39 Urine Blood 3+ (Negative) H 12/05/21 23:39 Urine Nitrate Negative (Negative) 12/05/21 23:39 Urine Bilirubin Neg (Negative) 12/05/21 23:39 Urine Urobilinogen Norm mg/dL (Negative) 12/05/21 23:39 Ur Leukocyte Esterase Trace (Negative) H 12/05/21 23:39 Urine RBC 25-40 /hpf (0-2) H 12/05/21 23:39 Urine WBC 0-4 /hpf (0-5) H 12/05/21 23:39 Ur Squamous Epith Cells 0-4 /hpf (0-5) H 12/05/21 23:39 Amorphous Sediment Not Reportable 12/05/21 23:39 Urine Bacteria Trace /hpf (NONE) 12/05/21 23:39 Discharge Plan Discharge Patient Disposition: Home Clinical Impression: Kidney stone on right side Condition: Stable Prescriptions: New tamsulosin 0.4 mg capsule 0.4 mg PO DAILY Qty: 20 0RF Rx Instructions: Take 1 tablet daily until you passed kidney stone. Naprosyn 500 mg tablet 500 mg PO BID PRN (Reason: pain) Qty: 20 0RF No Action perphenazine 2 mg tablet 2 mg PO BID Qty: 60 2RF buspirone 10 mg tablet 10 mg PO BID Qty: 60 2RF gabapentin 400 mg capsule 400 mg PO TID Qty: 90 2RF hydroxyzine HCl 25 mg tablet 25 mg PO BID PRN (Reason: anxiety and insomnia) Qty: 60 0RF sertraline 50 mg tablet 50 mg PO DAILY Qty: 30 0RF hydrocodone-acetaminophen 5-325 mg tablet 1 tab PO Q6H PRN (Reason: pain) Qty: 20 0RF Zofran 4 mg tablet 4 mg PO Q6H PRN (Reason: nausea and vomiting) Qty: 20 0RF Colace 100 mg capsule 100 mg PO BID Qty: 30 0RF Discharge Orders: Discharge ED (Routine); Ordered 12/06/21 Ordered By: Joey Schuster Referrals: Josue Wiggins MD [Primary Care Provider] - Discharge Diet: Regular Discharge Activity: Increase activity as tolerated Patient Instructions: Kidney Stones (ED), How to Strain Your Urine (ED), Opioid Safety Activity Restrictions/Additional Instructions: Follow-up with medical provider as directed. Case management should be contacting you in the next several days to set up an appointment with Dr. Rascon the urologist. Strain urine to catch stone and drink lots of fluid to stay hydrated and help pass stone. Take medications as prescribed. Take the tamsulosin daily until you passed kidney stone. Return To the ER or your medical provider if condition worsens. Please read and understand discharge instructions. If any questions, please ask. 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
--- NOTE | 2021-12-06 00:16 | CTR_ITS ---
PROCEDURE INFORMATION: Exam: CT Abdomen And Pelvis Without Contrast Exam date and time: 12/06/2021 12:30 AM Age: 31 years old Clinical indication: Abdominal pain; Flank; Right lower quadrant (rlq); Patient HX: C/O rlq pain and hematuria HX of stones; Additional info: Right flank pain and hematuria TECHNIQUE: Imaging protocol: Computed tomography of the abdomen and pelvis without contrast. Radiation optimization: All CT scans at this facility use at least one of these dose optimization techniques: automated exposure control; mA and/or kV adjustment per patient size (includes targeted exams where dose is matched to clinical indication); or iterative reconstruction. COMPARISON: CT abdomen pelvis w con* [id number] 09/08/2021 10:56 AM RADIATION DOSE METRICS: Total DLP (mGy-cm): 1753.13 FINDINGS: Lungs: Interval clearance of the atelectasis from the lung bases. Pleural spaces: Interval clearance of the pleural effusions and the pericardial effusion. Liver: Unremarkable liver. Gallbladder and bile ducts: Still no calcified gallstones or biliary ductal dilatation. Pancreas: No suggestion of interval pancreatic disease. Spleen: Still no splenomegaly. Adrenal glands: Still no adrenal mass. Kidneys and ureters: Continued stone in the mid right kidney. Interval disappearance of a stone from the posterior right mid kidney and appearance of [id number] right hydronephrosis and moderate right hydroureter. Interval appearance of the 5.5 x 4 mm stone in the right UVJ. Still no left hydronephrosis. Stomach and bowel: Continued increased fat in the right colonic wall. Increased fat in the wall of the terminal ileum now clearly evident. No suggestion of acute colitis. Mild sigmoid diverticulosis slightly more apparent than before. Still no obstruction. Nondistended stomach still present. Appendix: Still no appendicitis. Intraperitoneal space: Still no free air. Vasculature: Continued circumaortic left renal vein. Two right renal arteries again evident. Aorta still unremarkable. Lymph nodes: Still no enlarged lymph nodes. Urinary bladder: Interval increased fat in the anterior bladder wall. Reproductive: No significant change in size of the prostate. Bones/joints: Old compression fractures again evident. Continued degeneration of several discs. Soft tissues: Interval appearance of some of the small subcutaneous hazy densities possibly related to injections. CT/CT kidney stone 28032 IMPRESSION: 1. Interval disappearance of a stone from within the right kidney and appearance of the 5.5 x 4 mm stone in the right UVJ causing [id number] obstruction. Continued presence of 1 stone in the right kidney. 2. Interval clearance of the pleural effusions, pericardial effusion and the bibasilar atelectasis. 3. Interval increased fat in the anterior bladder wall raising the possibility of chronic inflammation. 4. Continued increased fat in the right colonic wall. Increased fat in the wall of the terminal ileum now clearly evident. Chronic inflammation not excluded. No apparent acute disease of the GI tract. Other findings detailed above.
[2021-12-06] MEDS: sodium chloride 0.9% 1,000 ML 999 ML IV (00:39)
[2021-12-06 00:41] LABS: Basophils # 0.1 10^3/uL (0.0-0.1); Basophils % 0.8 %; Eosinophils # 0.2 10^3/uL (0.0-0.8); Eosinophils % 2.1 %; Hematocrit 41.6 % (42.0-52.0); Hemoglobin 14.4 g/dL (11.7-16.6); Lymphocytes % 33.7 %; Mean Corpuscular HGB Conc 34.6 g/dL (30.0-36.0); Mean Corpuscular Hemoglobin 27.5 pg (28.0-34.0); Mean Corpuscular Volume 79.5 fl (80-94); Mean Platelet Volume 10.5 fL (7.4-10.4); Monocytes # 0.9 10^3/uL (0.2-0.9); Monocytes % 10.3 %; Neutrophils # 4.76 10^3/uL (1.8-7.7); Neutrophils % 52.9 %; Nucleated Red Blood Cells % 0 %; Platelet Count 249 10^3/cmm (130-400); Red Blood Count 5.23 10^6/uL (4.1-5.3); Red Cell Distribution Width 14.2 % (12.1-15.1)
[2021-12-06] MEDS: ondansetron 2 mg/ML SDV 2 mL 4 MG IVP (00:41)
[2021-12-06] MEDS: morphine 4 mg/mL SDV 1 mL IVP (00:43)
[2021-12-06 01:07] LABS: Alanine Aminotransferase 14 U/L (0-41); Albumin Level 4.3 g/dL (3.5-5.2); Alkaline Phosphatase 112 IU/L (40-130); Aspartate Amino Transferase 16 U/L (0-40); Blood Urea Nitrogen 16 mg/dL (6-20); Calcium 9.2 mg/dL (8.5-10.5); Carbon Dioxide 22 mmol/L (22-29); Chloride 104 mmol/L (98-107); Glomerular Filtration Rate 86.6 mL/min (90-130); Glucose 82 mg/dL (65-115); Osmolality Calculated 286 mOsm/kg (285-295); Sodium 138 mmol/L (136-145); Total Bilirubin 0.2 mg/dL (0.15-1.2); Total Protein 7.3 g/dL (6.6-8.7)
[2021-12-06] MEDS: tamsulosin 0.4 mg Capsule PO (02:17)
[2021-12-06] MEDS: ketorolac 30 mg/mL INJ IVP (02:19)
--- NOTE | 2021-12-08 12:36 | DCPLANNER ---
Addendum entered by Hetal Gonsalves 12/10/21 07:55: toy department manager was notified by Erika at Dr. Tdiwell office that patient contacted the office and cancelled the appointment. Addendum entered by Hetal Gonsalves 12/09/21 07:38: Patient has a follow up appointment scheduled for Friday, December 10, 2021 at 8:[address] Rascon. Clinic will call patient with appointment information. Original Note: toy department manager had message to schedule a follow up appointment for patient with Dr. Rascon. toy department manager emailed patients information Nader James and Monique in the office of Dr. Rascon. Patients information will be printed and reviewed. Clinic will call patient with appointment information.
== END 2021-12-06 02:41 | disposition home or self-care (01) ==
PROVIDERS: Emergency Medicine; Emergency Provider Physician Assistant; PCP Family Medicine Adult Medicine
DX: N20.0 Calculus of kidney (principal); F17.210 Nicotine dependence, cigarettes, uncomplicated
CPT/HCPCS: 74176; 80053; 81001; 85025; 87086; 96361; 96374; 96375; 99284; J1885; J2270; J2405; J7030

== ENCOUNTER 2022-01-23 20:41 | Emergency (ER) | payer MEDICARE, SELFPAY ==
[2022-01-23 20:53] VITALS: BP 143/73; PULSE 131; RESP 18; TEMP 37.1; O2SAT 95
--- NOTE | 2022-01-23 21:06 | W.ED.OVERDOS ---
HPI - Overdose General: Chief Complaint: Overdose Stated Complaint: SOB Time Seen by Provider: 01/23/22 20:58 Source: patient Mode of arrival: EMS Limitations: no limitations History of Present Illness: Patient who has a history of generalized anxiety disorder and takes prescribed medication states that he has taken a total of 810 mg BuSpar today in an attempt to control his underlying anxiety. He states that he is done this in the past and was received diphenhydramine with good resolution of symptoms. He states he feels like he has tightness of the neck muscles and some spasm of the same area. He denies any intent to harm himself. He denies any other coingestions. He is taken some of his other usual medications. Denies nausea vomiting diarrhea palpitations etc. How Overdose Was Discovered: called 911 Treatments Prior to Arrival: none Review of Systems Const: Denies: fever(s) or chills Eyes: Denies: change in vision ENMT: Reports: odynophagia; Denies: throat pain or hoarseness Card: Denies: chest pain, palpitations or irregular heart rhythm Resp: Denies: dyspnea, productive cough or non-productive cough GI: Denies: abdominal pain, nausea or vomiting : Denies: flank pain, difficulty urinating or dysuria Musc: Denies: neck pain, back pain or extremity pain Skin/Breast: Denies: rash Neuro: Denies: headache(s), numbness in extremities or weakness in extremities Psych: Reports: anxiety Endo: Denies: polyuria or polydipsia Александр/Lymph: Denies: easy bruising or easy bleeding PFS ED PFSH: Medical History Chronic chest wall pain Generalized anxiety disorder Diagnosis from previous provider, Dr. Eugene. Marijuana abuse in remission Patient reports abstinence from illegal drug use. He does report using Kratom , one or two tablespoons per day. Schizophrenia Longstanding diagnosis. Surgical History H/O excision of mass (11/17/21) right forehead, epigastrium, right back History of rectal surgery Social History Smoking and tobacco status: current every day smoker Physical Exam Narrative: EXAM NARRATIVE: The patient's alert makes good eye contact. He is going through episodes of jaw and sternocleidomastoid spasms but is able to communicate in full voice without any stridor. Const: COMMON NORMALS: average body habitus, patient oriented x3 and alert GENERAL APPEARANCE: cooperative and anxious HENMT: COMMON NORMALS: normocephalic, atraumatic, Normal nasal mucous membranes and turbinates present and moist oral mucous membranes HEAD & SCALP: normocephalic and atraumatic FACE & SINUS: normal facial exam NOSE: Normal nasal mucous membranes and turbinates present Eye: COMMON NORMALS: Equal, round and reactive pupils present, EOMs intact bilaterally and conjunctivae normal CONJUNCTIVA: Yes conjunctivae normal PUPIL: Yes Equal, round and reactive pupils present Neck/C-Spine: COMMON NORMALS: full ROM, no lymphadenopathy, supple, Thyroid normal and No carotid bruits THYROID: Thyroid normal Lymph: LYMPHATIC: no lymphadenopathy noted Chest: COMMONS NORMALS: normal inspection of the chest and normal palpation of entire chest wall Resp: COMMON NORMALS: normal respiratory effort, No retractions and clear to auscultation bilaterally EFFORT & INSPECTION: Yes able to speak in complete sentences, No stridor and No audible wheezes AUSCULTATION: clear to auscultation bilaterally Cardio: COMMON NORMALS: regular rate, regular rhythm, No murmurs present (Cardio) and Peripheral pulses 2+ throughout RATE: regular rate RHYTHM: regular rhythm PERIPHERAL PULSES: Peripheral pulses 2+ throughout GI: COMMON NORMALS: Normal to inspection, nondistended, normoactive bowel sounds present and Soft to palpation PALPATION: Yes Soft to palpation Back/Pelvis: COMMON NORMALS: thoracic and lumbar spine normal to inspection, no thoracic nor lumbar tenderness and straight leg raise negative bilaterally Extremity: COMMON NORMALS: normal to inspection, full ROM, capillary refill normal, no calf tenderness and no pedal edema Neuro: COMMON NORMALS: patient oriented x3, moves all extremities and no focal motor deficits SENSORIUM/ORIENTATION: Yes alert SPEECH: speech normal Psych: COMMON NORMALS: mental status grossly normal, Normal thought process present, cooperative, speech normal, denies hallucinations, denies homicidal ideation and denies suicidal ideation ATTITUDE: Yes calm ACTIVITY/MOTOR BEHAVIOR: Yes appropriate eye contact SPEECH: Yes normal speech THOUGHT PROCESS: Normal thought process present Course Reevaluation(s): Reevaluation #1: Patient received 50 mg of IV diphenhydramine and is on the monitor. His not displaying any arrhythmias. He subjectively is much improved and objectively he is not displaying any signs of the sternocleidomastoid and other cervical spasmodic activity and his voice is clear without any dysphonia. There is no stridor noted. No other physical stigmata of acute illness at this time. Reevaluation #2: The patient is very anxious to leave the emergency department. He states he feels at his baseline and is desires to go. On evaluation he is alert no display of any kind of dysphonia muscle contractions spasms etc. He is goal-directed in his speech. He is fluent and has no motor or other neurologic deficits. He denies any thoughts of harm to himself or others and is appropriately remorseful for taking more than he should have of his BuSpar but felt like that he was becoming more anxious and thought that might be a proper treatment. At this point I have no evidence of an ongoing emergency medical condition nor do I feel this patient has any intent on self-harm based upon his current mental status and capacity for decision-making I think is reasonable for him to be discharged. Time: 22:34 Vital Signs: Vital signs: Vital Signs Temperature 98.8 F 01/23/22 20:53 Pulse Rate 80 01/23/22 21:45 Respiratory Rate 18 01/23/22 21:45 Blood Pressure 114/79 01/23/22 21:45 Pulse Oximetry 98 01/23/22 21:45 MDM - Overdose Medical Decision Making Patient presented to the emergency department with nonlethal intentional overuse of his medications to control his subjective symptoms. He received medical screening examination, IV diphenhydramine which controlled his dystonia and was observed in the emergency department. He recovered to his baseline and desires to be discharged. Denied any suicidal thoughts or ideations or desire to harm himself. He has decision-making capacity and appears to be fairly insightful. He was cautioned on not overusing his medication and to follow-up with his regular prescribing physician. He is stable at this time to be discharged. Medical Records I reviewed the patient's medical records. Lab Data I reviewed the patient's lab results. : 01/23/22 21:20 01/23/22 21:20 Laboratory Results WBC 8.9 10^3/uL (4.0-10.0) 01/23/22 21:20 RBC 5.61 10^6/uL (4.1-5.3) H 01/23/22 21:20 Hgb 15.9 g/dL (11.7-16.6) 01/23/22 21:20 Hct 46.3 % (42.0-52.0) 01/23/22 21:20 MCV 82.5 fl (80-94) 01/23/22 21:20 MCH 28.3 pg (28.0-34.0) 01/23/22 21:20 MCHC 34.3 g/dL (30.0-36.0) 01/23/22 21:20 RDW 13.2 % (12.1-15.1) 01/23/22 21:20 Plt Count 300 10^3/cmm (130-400) 01/23/22 21:20 MPV 11.6 fL (7.4-10.4) H 01/23/22 21:20 Neut % (Auto) 56.8 % 01/23/22 21:20 Lymph % (Auto) 31.2 % 01/23/22 21:20 [place] % (Auto) 10.4 % 01/23/22 21:20 Eos % (Auto) 0.6 % 01/23/22 21:20 Baso % (Auto) 0.6 % 01/23/22 21:20 Neut # (Auto) 5.07 10^3/uL (1.8-7.7) 01/23/22 21:20 Lymph # (Auto) 2.8 10^3/uL (0.8-4.8) 01/23/22 21:20 [place] # (Auto) 0.9 10^3/uL (0.2-0.9) 01/23/22 21:20 Eos # (Auto) 0.1 10^3/uL (0.0-0.8) 01/23/22 21:20 Baso # (Auto) 0.1 10^3/uL (0.0-0.1) 01/23/22 21:20 Nucleated RBC % (auto) 0 % 01/23/22 21:20 Nucleated RBCs # 0.0 /100WBC 01/23/22 21:20 Sodium 134 mmol/L (136-145) L 01/23/22 21:20 Potassium 4.0 mmol/L (3.5-5.1) 01/23/22 21:20 Chloride 95 mmol/L (98-107) L 01/23/22 21:20 Carbon Dioxide 21 mmol/L (22-29) L 01/23/22 21:20 Anion Gap 22.0 (5-19) H 01/23/22 21:20 BUN 13 mg/dL (6-20) 01/23/22 21:20 Creatinine 0.7 mg/dL (0.7-1.2) 01/23/22 21:20 GFR Calculation 130.7 mL/min (90-130) H 01/23/22 21:20 Glucose 83 mg/dL (65-115) 01/23/22 21:20 Calculated Osmolality 277 mOsm/kg (285-295) L 01/23/22 21:20 Calcium 10.0 mg/dL (8.5-10.5) 01/23/22 21:20 Salicylates < 0.3 mg/dL (3-10) L 01/23/22 21:20 Acetaminophen < 5.0 ug/mL (10-30) L 01/23/22 21:20 Ethyl Alcohol < 10 mg/dL (0-10) 01/23/22 21:20 Discharge Plan Discharge Patient Disposition: Home Clinical Impression: Anxiety, Nonadherence to medication Condition: Stable Prescriptions: No Action perphenazine 2 mg tablet 2 mg PO BID Qty: 60 2RF buspirone 10 mg tablet 10 mg PO BID Qty: 60 2RF gabapentin 400 mg capsule 400 mg PO TID Qty: 90 2RF hydroxyzine HCl 25 mg tablet 25 mg PO BID PRN (Reason: anxiety and insomnia) Qty: 60 0RF sertraline 100 mg tablet 100 mg PO DAILY Qty: 30 0RF hydrocodone-acetaminophen 5-325 mg tablet 1 tab PO Q6H PRN (Reason: pain) Qty: 20 0RF Zofran 4 mg tablet 4 mg PO Q6H PRN (Reason: nausea and vomiting) Qty: 20 0RF Colace 100 mg capsule 100 mg PO BID Qty: 30 0RF tamsulosin 0.4 mg capsule 0.4 mg PO DAILY Qty: 20 0RF Rx Instructions: Take 1 tablet daily until you passed kidney stone. Naprosyn 500 mg tablet 500 mg PO BID PRN (Reason: pain) Qty: 20 0RF Discharge Orders: Discharge ED (Routine); Ordered 01/23/22 Ordered By: Kendall Loja Referrals: Josue Wiggins MD [Primary Care Provider] - Discharge Diet: Usual diet Discharge Activity: Resume usual activity Patient Instructions: Opioid Safety Activity Restrictions/Additional Instructions: Only take the medications that you are prescribed as they are prescribed. Do not take any more than your prescription calls for. If you have increased anxiety or other concerns or feel that you are at a risk to yourself call 911 or return to this or the nearest emergency department. Follow-up with your regular prescribing physician. 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
[2022-01-23] MEDS: diphenhydrAMINE 50 mg/mL SDV 1mL IVP (21:24)
[2022-01-23 21:31] LABS: Basophils # 0.1 10^3/uL (0.0-0.1); Basophils % 0.6 %; Eosinophils # 0.1 10^3/uL (0.0-0.8); Eosinophils % 0.6 %; Hematocrit 46.3 % (42.0-52.0); Hemoglobin 15.9 g/dL (11.7-16.6); Lymphocytes # 2.8 10^3/uL (0.8-4.8); Lymphocytes % 31.2 %; Mean Corpuscular HGB Conc 34.3 g/dL (30.0-36.0); Mean Corpuscular Hemoglobin 28.3 pg (28.0-34.0); Mean Corpuscular Volume 82.5 fl (80-94); Mean Platelet Volume 11.6 fL (7.4-10.4); Monocytes # 0.9 10^3/uL (0.2-0.9); Monocytes % 10.4 %; Neutrophils # 5.07 10^3/uL (1.8-7.7); Neutrophils % 56.8 %; Nucleated Red Blood Cells % 0 %; Platelet Count 300 10^3/cmm (130-400); Red Blood Count 5.61 10^6/uL (4.1-5.3); Red Cell Distribution Width 13.2 % (12.1-15.1); White Blood Count 8.9 10^3/uL (4.0-10.0)
[2022-01-23] MEDS: sodium chloride 0.9% 1,000 ML 150 ML IV (21:34)
[2022-01-23 21:45] VITALS: BP 114/79; PULSE 80; RESP 18; O2SAT 98
[2022-01-23 21:53] LABS: Blood Urea Nitrogen 13 mg/dL (6-20); Carbon Dioxide 21 mmol/L (22-29); Chloride 95 mmol/L (98-107); Glomerular Filtration Rate 130.7 mL/min (90-130); Glucose 83 mg/dL (65-115); Osmolality Calculated 277 mOsm/kg (285-295); Sodium 134 mmol/L (136-145)
[2022-01-23 22:06] LABS: Acetaminophen < 5.0 ug/mL (10-30); Alcohol Level < 10 mg/dL (0-10); Salicylate < 0.3 mg/dL (3-10)
== END 2022-01-23 22:49 | disposition home or self-care (01) ==
PROVIDERS: Emergency Provider Emergency Medicine; PCP Family Medicine Adult Medicine
DX: F41.9 Anxiety disorder, unspecified (principal); Z91.14 Patient's other noncompliance with medication regimen
CPT/HCPCS: 80048; 80307; 85025; 96361; 96374; 99284; J1200; J7030

== ENCOUNTER 2022-04-12 18:09 | Inpatient (IN) | payer MEDICARE, MEDICAID, SELFPAY ==
--- NOTE | 2022-04-12 18:19 | W.ED.PSYCHS ---
HPI - Psych General: Chief Complaint: Psychiatric Symptoms Stated Complaint: PSYCH EVAL Time Seen by Provider: 04/12/22 18:10 History of Present Illness: 32-year-old presents due to psychosis. He has a history of schizophrenia. Admit hearing voices that symptoms do not hurt himself. Denies any desire to hurt himself further. Denies any homicidal ideation. Denies any focal pain or injury. Review of Systems Narrative: - CONSTITUTIONAL: Denies weight loss, fever and chills. - HEENT: Denies changes in vision and hearing. - RESPIRATORY: Denies SOB and cough. - CV: Denies palpitations and CP. - GI: Denies abdominal pain, nausea, vomiting and diarrhea. - : Denies dysuria and urinary frequency. - MSK: Denies myalgia and joint pain. - SKIN: Denies rash and pruritus. - NEUROLOGICAL: Denies headache, weakness, numbness and syncope. - PSYCHIATRIC: As above [facility] ED PFSH: Medical History Chronic chest wall pain Generalized anxiety disorder Diagnosis from previous provider, Dr. Eugene. Marijuana abuse in remission Patient reports abstinence from illegal drug use. He does report using Kratom , one or two tablespoons per day. Schizophrenia Longstanding diagnosis. Surgical History H/O excision of mass (11/17/21) right forehead, epigastrium, right back History of rectal surgery Social History Smoking and tobacco status: current every day smoker Physical Exam Narrative: EXAM NARRATIVE: - GENERAL: Alert and oriented x 3. No acute distress. Well-nourished. - EYES: EOMI. Anicteric. - HENT: Atraumatic, no C-spine tenderness. Moist mucous membranes. No scleral icterus. No cervical lymphadenopathy. - LUNGS: Clear to auscultation bilaterally. No accessory muscle use. Equal lung sounds bilaterally. No respiratory distress. - CARDIOVASCULAR: Regular rate and rhythm. No murmur. No JVD. - ABDOMEN: Soft, non-tender and non-distended. Negative CVA tenderness bilaterally, no rebound or guarding, negative Joshi sign. No palpable masses. - EXTREMITIES: No edema. Non-tender. - SKIN: No rashes or lesions. Warm. - NEUROLOGIC: No meningismus or focal neurological deficits. CN II-XII grossly intact. - PSYCHIATRIC: Appears to be responding to internal stimuli. Denies suicidal homicidal ideation. Endorses auditory hallucinations. Course Vital Signs: Vital signs: Vital Signs Temperature 98.4 F 04/12/22 18:22 Pulse Rate 119 H 04/12/22 18:45 Respiratory Rate 16 04/12/22 18:45 Blood Pressure 149/99 04/12/22 18:45 Pulse Oximetry 96 04/12/22 18:45 [facility] - Psych Medical Decision Making 32-year-old presents with psychosis. He appears to be responding to internal stimuli and states he hears auditory hallucinations telling him to hurt himself. However denies any suicidal or homicidal ideation or actual desire to hurt himself. Patient does have previous history of amphetamine use. Denies any current pain. Otherwise he is medically clear. Discussed with psychiatry and they agreed patient would benefit from admission. Patient admitted in stable condition. Further evaluation management per psychiatry team. Discharge Plan Discharge Condition: Stable Prescriptions: No Action divalproex [Depakote ER] 500 mg tablet extended release 24 hr 500 mg PO .HS Qty: 30 1RF olanzapine 5 mg tablet 5 mg PO .HS Qty: 30 1RF perphenazine 2 mg tablet 2 mg PO BID Qty: 60 1RF buspirone 10 mg tablet 10 mg PO BID Qty: 60 1RF sertraline 100 mg tablet 100 mg PO DAILY Qty: 30 1RF gabapentin 400 mg capsule 400 mg PO TID Qty: 90 1RF hydroxyzine HCl 25 mg tablet 25 mg PO BID PRN (Reason: anxiety and insomnia) Qty: 60 0RF hydrocodone-acetaminophen 5-325 mg tablet 1 tab PO Q6H PRN (Reason: pain) Qty: 20 0RF Zofran 4 mg tablet 4 mg PO Q6H PRN (Reason: nausea and vomiting) Qty: 20 0RF Colace 100 mg capsule 100 mg PO BID Qty: 30 0RF tamsulosin 0.4 mg capsule 0.4 mg PO DAILY Qty: 20 0RF Rx Instructions: Take 1 tablet daily until you passed kidney stone. Naprosyn 500 mg tablet 500 mg PO BID PRN (Reason: pain) Qty: 20 0RF Referrals: Josue Wiggins MD [Primary Care Provider] - Coding Level of Care Code ED [employer] Representative for Cristinag Lili
[2022-04-12 18:22] VITALS: BP 149/99; PULSE 119; RESP 16; TEMP 36.9; O2SAT 96; BMI 27.6
[2022-04-12 18:45] VITALS: BP 149/99; PULSE 119; RESP 16; O2SAT 96
[2022-04-12 19:14] LABS: Basophils # 0.1 10^3/uL (0.0-0.1); Basophils % 0.9 %; Eosinophils # 0.1 10^3/uL (0.0-0.8); Eosinophils % 1.9 %; Hematocrit 43.2 % (42.0-52.0); Hemoglobin 14.5 g/dL (11.7-16.6); Lymphocytes # 2.8 10^3/uL (0.8-4.8); Mean Corpuscular HGB Conc 33.6 g/dL (30.0-36.0); Mean Corpuscular Hemoglobin 28.6 pg (28.0-34.0); Mean Corpuscular Volume 85.2 fl (80-94); Mean Platelet Volume 10.4 fL (7.4-10.4); Monocytes # 0.8 10^3/uL (0.2-0.9); Monocytes % 11.2 %; Neutrophils # 3.66 10^3/uL (1.8-7.7); Neutrophils % 48.7 %; Nucleated Red Blood Cells % 0 %; Platelet Count 292 10^3/cmm (130-400); Red Blood Count 5.07 10^6/uL (4.1-5.3); Red Cell Distribution Width 12.3 % (12.1-15.1); White Blood Count 7.5 10^3/uL (4.0-10.0)
[2022-04-12 19:47] LABS: Alanine Aminotransferase 17 U/L (0-41); Albumin Level 4.6 g/dL (3.5-5.2); Alkaline Phosphatase 108 IU/L (40-130); Anion Gap 15.9 (5-19); Aspartate Amino Transferase 21 U/L (0-40); Blood Urea Nitrogen 15 mg/dL (6-20); Calcium 9.5 mg/dL (8.5-10.5); Carbon Dioxide 26 mmol/L (22-29); Chloride 102 mmol/L (98-107); Globulin 2.5 g/dL (1.3-4.6); Glomerular Filtration Rate 97.2 mL/min (90-130); Glucose 94 mg/dL (65-115); Osmolality Calculated 291 mOsm/kg (285-295); Potassium 3.9 mmol/L (3.5-5.1); Sodium 140 mmol/L (136-145); Thyroid Stimulating Hormone 3.23 uIU/mL (0.27-4.20); Total Bilirubin 0.5 mg/dL (0.15-1.2); Total Protein 7.1 g/dL (6.6-8.7)
[2022-04-12 19:48] LABS: Acetaminophen < 5.0 ug/mL (10-30); Alcohol Level < 10 mg/dL (0-10); Salicylate < 0.3 mg/dL (3-10)
[2022-04-12 20:06] LABS: Amphetamines Screen Urine Positive (Negative); Barbiturates Screen Urine Negative (Negative); Benzodiazepines Screen Urine Negative (Negative); Cocaine Screen Urine Negative (Negative); Opiate Screen Urine Negative (Negative); PCP Screen Urine Negative (Negative); THC Screen Urine Negative (Negative)
[2022-04-12 20:11] LABS: Add Urine Microscopic? YES; Bilirubin Urine 1+ (Negative); Blood Urine 2+ (Negative); Glucose Urine UA Norm (Normal); Ketones Urine Negative (Negative); Leukocyte Esterase Urine Negative (Negative); Nitrate Urine Negative (Negative); Protein Urine Neg (Negative); Specific Gravity, Urine 1.025 (1.005-1.030); Urine Appearance Clear (CLEAR); Urine Color Yellow (Yellow); Urobilinogen Urine 1 mg/dL (Negative); pH Urine 6 (5-7)
[2022-04-12 20:12] LABS: Bacteria Urine TRACE /hpf; Mucus Urine 2+ /hpf; Squamous Epithelial Cell Urine 0-4 /hpf (0-5); WBC Urine 0-4 /hpf (0-5)
[2022-04-12 20:13] LABS: Calcium Oxalate Crystals Urine 0-4 /hpf
[2022-04-12 20:14] LABS: Add Urine Culture? Yes
[2022-04-12] MEDS: nicotine 14 mg Patch 1 PATCH TRANSDERMA (23:06)
[2022-04-12] MEDS: LORazepam 2 mg/mL INJ 1 mL 1 MG IVP (23:06)
[2022-04-13 09:53] VITALS: PULSE 101; RESP 16; O2SAT 94
[2022-04-13 13:58] VITALS: BP 106/64; PULSE 72; RESP 17; TEMP 36.3; O2SAT 97
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
--- NOTE | 2022-04-13 17:13 | PC.NURSE ---
PTS MOTHER JAMES NEAL CAME IN TO WATER TREATMENT TECHNICIAN PTS KEYS SO SHE COULD WATER TREATMENT TECHNICIAN HIS DOG, PER PTS REQUEST. MOTHER IS ON PTS HIPPA FORM.
[2022-04-13] MEDS: nicotine 2 mg Gum BUCCAL (19:39)
[2022-04-13 20:19] VITALS: BP 119/80; PULSE 94; RESP 16; TEMP 36.6; O2SAT 99
[2022-04-13] MEDS: OLANZapine 5 mg ODT PO (21:12)
[2022-04-13] MEDS: trazodone 50 mg Tablet PO (21:12)
[2022-04-14 06:00] VITALS: BP 118/78; PULSE 99; RESP 15; TEMP 36.6; O2SAT 99
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
[2022-04-14] MEDS: nicotine 21 mg Patch 1 PATCH TRANSDERMA (11:42)
[2022-04-14 14:00] VITALS: BP 114/74; PULSE 74; RESP 18; TEMP 36.9; O2SAT 99
[2022-04-14] MEDS: buPROPion SR (12 HR) 150 mg Tablet PO (16:44)
[2022-04-14] MEDS: hyDROXYzine 25 mg Capsule 50 MG PO (18:58)
[2022-04-14] MEDS: OLANZapine 5 mg ODT PO (19:34)
[2022-04-14 20:24] VITALS: RESP 18
[2022-04-14] MEDS: OLANZapine 10 mg TABLET PO (20:28)
[2022-04-14] MEDS: divalproex ER 500 mg Tablet (24H) PO (21:03)
[2022-04-14] MEDS: gabapentin 400 mg Capsule PO (21:03)
[2022-04-14] MEDS: trazodone 50 mg Tablet PO (21:57)
[2022-04-15 06:00] VITALS: RESP 17
[2022-04-15] MEDS: buPROPion XL (24 HR) 150 mg Tablet PO (10:40)
[2022-04-15] MEDS: BuSPIRONE 10 mg Tablet PO (10:40)
[2022-04-15] MEDS: gabapentin 400 mg Capsule PO ×3 (10:40→20:53)
[2022-04-15] MEDS: perphenazine 4 mg Tablet 2 MG PO ×2 (11:34→18:50)
[2022-04-15] MEDS: nicotine 21 mg Patch 1 PATCH TRANSDERMA (11:58)
[2022-04-15 14:00] VITALS: BP 117/77; PULSE 99; RESP 18; TEMP 36.8; O2SAT 99
--- NOTE | 2022-04-15 16:03 | P.NPUPN_ITS ---
Subjective NPU Subjective: Patient presents today reporting some angst about still being here. He continues to feel he should not have been forced to stay. We spoke to his mother and she reports he is close to baseline and she would support a discharge tomorrow. He is eating and sleeping well and he is taking his med ication as prescribed. Mental Status Exam MSE Comments: This is a slender white male in hospital scrubs with adequate grooming and eye contact. No abnormal movements except for mild psychomotor retardation. Cooperative with exam in mild distress. Speech was normal rate and volume. Mood described as okay, affect is subdued. Thought process, organized. Thought content: patient denies suicidal or homicidal ideation, reports normal paranoia amounts but no delusions noted, and denies auditory or visual hutchins llucinations?. Attention and concentration are intact and memory appeared reliable but none were formally tested. He is alert and oriented three times. Insight and judgment are fair. Impulse control is fair. Vitals/I&O/Wt Last Vital Signs Temp 98.4 F 04/14/22 14:00 Pulse 74 04/14/22 14:00 Resp 17 04/15/22 06:00 BP 114/74 04/14/22 14:00 Pulse Ox 99 04/14/22 14:00 O2 Del Method 04/13/22 14:43 Data NPU : 04/12/22 18:38 04/12/22 18:38 A&P Assessment and plan (1) Chronic chest wall pain: Status: Acute (2) Nicotine dependence, unspecified, uncomplicated: Status: Acute (3) Methamphetamine abuse: Status: Acute (4) Marijuana abuse in remission: Status: Acute (5) Generalized anxiety disorder: Status: Acute (6) Schizophrenia: Status: Acute Qualifiers: Schizophrenia type: undifferentiated schizophrenia Qualified Code(s): F20.3 - Undifferentiated schizophrenia Plan This is a 32 year old male with a history of mental health issues and genetic loading for mental health and addiction issues who presents reporting increased depression recently due to his car, among other things, breaking and currently off his medication due to lack of transportation reporting some success on his previous medications and open to changes in those medications. 1. Continue current medications 2. Encourage individual, group and milieu therapy 3. Continue q-15 minute check for safety Involuntary Hold Information 96 Hour Hold: 96 Hour Involuntary Admission: Yes 96 Hour Hold Ending Date: 04/10/22 96 Hour Hold Ending Time: 13:36 Attestations NPU Medical Necessity Statement*: Inpatient hospitalization is medically necessary and the clinically appropriate intervention at this time. We will monitor medications and make changes as indicated. Likely discharge tomorrow. Coding Level of Care Code Acute Etcher Hand for Faina Fwd Diagnoses Chronic chest wall pain R07.89; G89.29 Nicotine dependence, unspecified, uncomplicated F17.200 Methamphetamine abuse F15.10 Marijuana abuse in remission F12.11 Generalized anxiety disorder F41.1 Schizophrenia F20.3 Schizophrenia type: undifferentiated schizophrenia
[2022-04-15 19:35] VITALS: BP 134/62; PULSE 103; RESP 17; TEMP 36.8; O2SAT 97
[2022-04-15] MEDS: divalproex ER 500 mg Tablet (24H) PO (20:52)
[2022-04-15] MEDS: hyDROXYzine 25 mg Capsule 50 MG PO (20:53)
[2022-04-15] MEDS: OLANZapine 10 mg TABLET PO (20:53)
[2022-04-15] MEDS: trazodone 50 mg Tablet PO (22:27)
[2022-04-16 06:00] VITALS: BP 125/82; PULSE 72; RESP 16; TEMP 36.9; O2SAT 99
--- NOTE | 2022-04-16 06:25 | PC.NURSE ---
Trazadone 50 mg po given last night with a good effect.
[2022-04-16] MEDS: BuSPIRONE 10 mg Tablet PO (08:29)
[2022-04-16] MEDS: gabapentin 400 mg Capsule PO (08:29)
[2022-04-16] MEDS: perphenazine 4 mg Tablet 2 MG PO (08:29)
[2022-04-16] MEDS: buPROPion XL (24 HR) 150 mg Tablet PO (08:29)
[2022-04-16 11:23] VITALS: BP 125/82; PULSE 72; RESP 16; TEMP 36.9; O2SAT 99
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
[2022-04-16 12:27] VITALS: BP 125/82; PULSE 72; RESP 16; TEMP 36.9; O2SAT 99
--- NOTE | 2022-04-16 15:19 | DCPLANNER ---
Medicare rights given 04/16/22 @ 7735 to pt by phone.
== END 2022-04-16 12:45 | disposition home or self-care (01) | DRG 885 ==
LOC: ER 21:40 → NP 04-13 13:39
PROVIDERS: Admitting Provider Psychiatry & Neurology Psychiatry; Emergency Provider Emergency Medicine; PCP Family Medicine Adult Medicine; Visit Provider Psychiatry & Neurology Psychiatry
DX: F20.3 Undifferentiated schizophrenia (principal); F41.1 Generalized anxiety disorder; F15.10 Other stimulant abuse, uncomplicated; F12.11 Cannabis abuse, in remission; G89.29 Other chronic pain; R07.89 Other chest pain; F17.210 Nicotine dependence, cigarettes, uncomplicated; Z79.891 Long term (current) use of opiate analgesic; Z91.52 Personal history of nonsuicidal self-harm; Z81.8 Family history of other mental and behavioral disorders; Z81.4 Family history of other substance abuse and dependence; Z62.810 Personal history of physical and sexual abuse in childhood; Z62.811 Personal history of psychological abuse in childhood
CPT/HCPCS: 36415; 80053; 80306; 80307; 81001; 84443; 85025; 87086; 96374; 97165; 99285; J2060; Q0175

== ENCOUNTER 2022-06-16 03:29 | Emergency (ER) | payer MEDICARE, MEDICAID, SELFPAY ==
--- NOTE | 2022-06-16 03:30 | CTR_ITS ---
PROCEDURE INFORMATION: Exam: CT Head Without Contrast Exam date and time: 06/16/2022 3:44 AM Age: 32 years old Clinical indication: Altered mental status/memory loss; Additional info: AMS TECHNIQUE: Imaging protocol: Computed tomography of the head without contrast. Radiation optimization: All CT scans at this facility use at least one of these dose optimization techniques: automated exposure control; mA and/or kV adjustment per patient size (includes targeted exams where dose is matched to clinical indication); or iterative reconstruction. COMPARISON: No relevant prior studies available. RADIATION DOSE METRICS: Total DLP (mGy-cm): 1212.28 FINDINGS: Brain: No acute intracranial hemorrhage or mass effect. No definite acute infarct by CT. MRI could be more sensitive/specific for detection, as clinically directed. Cerebral ventricles: Ventricle size is normal for age. Paranasal sinuses: Included paranasal sinuses are essentially clear. Mastoid air cells: No significant acute finding. Bones/joints: No definite acute skull fracture. Soft tissues: No significant acute finding. CT/CT head wo con* [id number] IMPRESSION: 1. No acute intracranial hemorrhage or mass effect. 2. No definite acute infarct by CT, see above. 3. Other findings discussed above.
[2022-06-16 03:31] VITALS: BP 158/92; PULSE 98; RESP 18; TEMP 36.8; O2SAT 98; BMI 26.9
--- NOTE | 2022-06-16 03:42 | W.ED.ANXIETY ---
HPI - Anxiety General: Chief Complaint: Anxiety Stated Complaint: anxiety Time Seen by Provider: 06/16/22 03:30 Source: patient and EMS Mode of arrival: EMS Limitations: no limitations History of Present Illness: 32-year-old \male states he has been having extreme anxiety he states he is outside tonight and had multiple falls he does have abrasions to his face he is unsure what exactly happened. He denies any loss consciousness have a headache he does appear anxious here he states he feels like he is having d?j? vu and he is doing this before. He denies any suicidal homicidal ideation he does use marijuana. Associated symptoms: Reports headache(s); Deny chest pain, chills, fever(s), nausea or vomiting Review of Systems Const: Denies: fever(s), chills, body aches or change in appetite Eyes: Denies: blurry vision or eye discomfort ENMT: Denies: throat pain or dental pain Card: Denies: chest pain Resp: Denies: dyspnea GI: Denies: abdominal pain, nausea, vomiting or diarrhea : Denies: dysuria Musc: Denies: neck pain or back pain Skin/Breast: Denies: rash Neuro: Reports: headache(s) Psych: Reports: anxiety Александр/Lymph: Denies: easy bruising All/Imm: Denies: urticaria PFSH ED PFSH: Medical History Chronic chest wall pain Generalized anxiety disorder Diagnosis from previous provider, Dr. Eugene. Marijuana abuse in remission Patient reports abstinence from illegal drug use. He does report using Kratom , one or two tablespoons per day. 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 Surgical History H/O excision of mass (11/17/21) right forehead, epigastrium, right back History of rectal surgery Social History Smoking and tobacco status: current every day smoker cigarettes Packs smoked per day: 0.15 Years cigarettes smoked: 20 Quit status (tobacco): has tried quititng Number of times tried to quit tobacco: 50 Second hand smoke exposure: No Smoking risk assessment/counseling performed?: No Alcohol intake: never Desire information about alcohol rehabilitation?: No Counseling given: No Desire information about substance/drug rehabilitation?: No Counseling given: No Physical Exam Const: COMMON NORMALS: no acute distress, patient oriented x3 and healthy appearing HENMT: COMMON NORMALS: normocephalic; head/scalp not atraumatic (abrasions to forehead) HEAD & SCALP: normocephalic; not atraumatic (abrasions to forehead) Eye: COMMON NORMALS: Equal, round and reactive pupils present and EOMs intact bilaterally PUPIL: Yes Equal, round and reactive pupils present Neck/C-Spine: COMMON NORMALS: full ROM and supple Chest: COMMONS NORMALS: normal inspection of the chest and normal palpation of entire chest wall Resp: COMMON NORMALS: normal respiratory effort, No retractions, No use of accessory muscles and clear to auscultation bilaterally AUSCULTATION: clear to auscultation bilaterally Cardio: COMMON NORMALS: regular rate, regular rhythm and No murmurs present (Cardio) RATE: regular rate RHYTHM: regular rhythm GI: COMMON NORMALS: Normal to inspection, nondistended, normoactive bowel sounds present, Soft to palpation, non-tender and no masses PALPATION: Yes Soft to palpation Extremity: COMMON NORMALS: normal to inspection and full ROM Neuro: COMMON NORMALS: patient oriented x3, moves all extremities and no focal motor deficits Psych: COMMON NORMALS: mental status grossly normal, Normal thought process present and cooperative THOUGHT PROCESS: Normal thought process present Skin: COMMON NORMALS: no rashes or lesions noted and no wounds GENERAL SKIN EXAM: no rashes or lesions noted Course Vital Signs: Vital signs: Vital Signs Temperature 98.2 F 06/16/22 03:31 Pulse Rate 88 06/16/22 05:55 Respiratory Rate 16 06/16/22 05:55 Blood Pressure 128/68 06/16/22 05:13 Pulse Oximetry 97 06/16/22 05:55 Oxygen Delivery Me thod 06/16/22 05:13 MDM - Anxiety Medical Decision Making Patient presents here with closed head injury he is also quite anxious he feels improved after Ativan blood work head CT are all normal he is stable for discharge he is to follow-up with PCP and return if worsening. Lab Data : 06/16/22 03:50 06/16/22 03:[address] 06/16/22 03:30 IMPRESSION: 1. No acute intracranial hemorrhage or mass effect. 2. No definite acute infarct by CT, see above. 3. Other findings discussed above. Laboratory Results WBC 8.2 10^3/uL (4.0-10.0) 06/16/22 03:50 RBC 4.83 10^6/uL (4.1-5.3) 06/16/22 03:50 Hgb 13.7 g/dL (11.7-16.6) 06/16/22 03:50 Hct 40.5 % (42.0-52.0) L 06/16/22 03:50 MCV 83.9 fl (80-94) 06/16/22 03:50 MCH 28.4 pg (28.0-34.0) 06/16/22 03:50 MCHC 33.8 g/dL (30.0-36.0) 06/16/22 03:50 RDW 13.3 % (12.1-15.1) 06/16/22 03:50 Plt Count 246 10^3/cmm (130-400) 06/16/22 03:50 MPV 10.3 fL (7.4-10.4) 06/16/22 03:50 Neut % (Auto) 47.4 % 06/16/22 03:50 Lymph % (Auto) 38.1 % 06/16/22 03:50 [place] % (Auto) 12.1 % 06/16/22 03:50 Eos % (Auto) 1.5 % 06/16/22 03:50 Baso % (Auto) 0.7 % 06/16/22 03:50 Neut # (Auto) 3.89 10^3/uL (1.8-7.7) 06/16/22 03:50 Lymph # (Auto) 3.1 10^3/uL (0.8-4.8) 06/16/22 03:50 [place] # (Auto) 1.0 10^3/uL (0.2-0.9) H 06/16/22 03:50 Eos # (Auto) 0.1 10^3/uL (0.0-0.8) 06/16/22 03:50 Baso # (Auto) 0.1 10^3/uL (0.0-0.1) 06/16/22 03:50 Nucleated RBC % (auto) 0 % 06/16/22 03:50 Nucleated RBCs # 0.0 /100WBC 06/16/22 03:50 Sodium 139 mmol/L (136-145) 06/16/22 03:50 Potassium 3.6 mmol/L (3.5-5.1) 06/16/22 03:50 Chloride 100 mmol/L (98-107) 06/16/22 03:50 Carbon Dioxide 28 mmol/L (22-29) 06/16/22 03:50 Anion Gap 14.6 (5-19) 06/16/22 03:50 BUN 18 mg/dL (6-20) 06/16/22 03:50 Creatinine 1.2 mg/dL (0.7-1.2) 06/16/22 03:50 GFR Calculation 69.7 mL/min (90-130) L 06/16/22 03:50 Glucose 112 mg/dL (65-115) 06/16/22 03:50 Calculated Osmolality 291 mOsm/kg (285-295) 06/16/22 03:50 Calcium 8.7 mg/dL (8.5-10.5) 06/16/22 03:50 Total Bilirubin 0.2 mg/dL (0.15-1.2) 06/16/22 03:50 AST 23 U/L (0-40) 06/16/22 03:50 ALT 21 U/L (0-41) 06/16/22 03:50 Alkaline Phosphatase 109 U/L (40-130) 06/16/22 03:50 Total Protein 7.0 g/dL (6.6-8.7) 06/16/22 03:50 Albumin 4.2 g/dL (3.5-5.2) 06/16/22 03:50 Globulin 2.8 g/dL (1.3-4.6) 06/16/22 03:50 Lipase 34 U/L (13-60) 06/16/22 03:50 Urine Opiates Screen Negative ng/mL (Negative) 06/16/22 03:50 Ur Barbiturates Screen Negative ng/mL (Negative) 06/16/22 03:50 Valproic Acid < 2.4 ug/mL (50-100) L 06/16/22 03:50 Ur Phencyclidine Scrn Negative ng/mL (Negative) 06/16/22 03:50 Ur Amphetamines Screen Negative ng/mL (Negative) 06/16/22 03:50 U Benzodiazepines Scrn Negative ng/mL (Negative) 06/16/22 03:50 Urine Cocaine Screen Negative ng/mL (Negative) 06/16/22 03:50 U Marijuana (THC) Screen Negative ng/mL (Negative) 06/16/22 03:50 Ethyl Alcohol < 10 mg/dL (0-10) 06/16/22 03:50 Discharge Plan Discharge Patient Disposition: Home Clinical Impression: Acute anxiety, Head injury Condition: Stable Prescriptions: No Action olanzapine 10 mg tablet 10 mg PO BID 30 Days Qty: 60 0RF perphenazine 2 mg tablet 4 mg PO BID 30 Days Qty: 120 0RF naproxen [Naprosyn] 500 mg tablet 500 mg PO BID PRN (Reason: pain) Qty: 20 0RF multivitamin Tablet 1 tab PO DAILY trazodone 50 mg Tablet 50 mg PO BEDTIME PRN (Reason: Sleep) 30 Days Qty: 30 1RF bupropion HCl 150 mg Tablet Extended Release 24 Hr 150 mg PO DAILY 30 Days Qty: 30 1RF gabapentin 400 mg capsule 400 mg PO TID 30 Days Qty: 90 1RF buspirone 10 mg tablet 10 mg PO DAILY 30 Days Qty: 30 1RF Depakote ER 500 mg tablet extended release 24 hr 500 mg PO .HS 30 Days Qty: 30 1RF Discharge Orders: Discharge ED (Routine); Ordered 06/16/22 Ordered By: Daysi Hensley Referrals: Josue Wiggins MD [Primary Care Provider] - 1-3 days Discharge Diet: Advance as tolerated Discharge Activity: Resume usual activity Patient Instructions: Head Injury (ED) Coding Level of Care Code ED Emergency Technician for Cristinag Fwd Exam Comprehensive
[2022-06-16] MEDS: sodium chloride 0.9% 1,000 ML 999 ML IV (03:50)
[2022-06-16] MEDS: LORazepam 2 mg Tablet PO (03:50)
[2022-06-16 04:04] LABS: Basophils # 0.1 10^3/uL (0.0-0.1); Basophils % 0.7 %; Eosinophils # 0.1 10^3/uL (0.0-0.8); Eosinophils % 1.5 %; Hematocrit 40.5 % (42.0-52.0); Hemoglobin 13.7 g/dL (11.7-16.6); Lymphocytes # 3.1 10^3/uL (0.8-4.8); Lymphocytes % 38.1 %; Mean Corpuscular HGB Conc 33.8 g/dL (30.0-36.0); Mean Corpuscular Hemoglobin 28.4 pg (28.0-34.0); Mean Corpuscular Volume 83.9 fl (80-94); Mean Platelet Volume 10.3 fL (7.4-10.4); Monocytes % 12.1 %; Neutrophils # 3.89 10^3/uL (1.8-7.7); Neutrophils % 47.4 %; Nucleated Red Blood Cells % 0 %; Platelet Count 246 10^3/cmm (130-400); Red Blood Count 4.83 10^6/uL (4.1-5.3); Red Cell Distribution Width 13.3 % (12.1-15.1); White Blood Count 8.2 10^3/uL (4.0-10.0)
[2022-06-16 04:13] LABS: Amphetamines Screen Urine Negative (Negative); Barbiturates Screen Urine Negative (Negative); Benzodiazepines Screen Urine Negative (Negative); Cocaine Screen Urine Negative (Negative); Opiate Screen Urine Negative (Negative); PCP Screen Urine Negative (Negative); THC Screen Urine Negative (Negative)
[2022-06-16 04:17] VITALS: BP 140/85; PULSE 82; RESP 18; O2SAT 99
[2022-06-16 04:25] LABS: Alanine Aminotransferase 21 U/L (0-41); Albumin Level 4.2 g/dL (3.5-5.2); Alkaline Phosphatase 109 U/L (40-130); Anion Gap 14.6 (5-19); Aspartate Amino Transferase 23 U/L (0-40); Blood Urea Nitrogen 18 mg/dL (6-20); Calcium 8.7 mg/dL (8.5-10.5); Carbon Dioxide 28 mmol/L (22-29); Chloride 100 mmol/L (98-107); Globulin 2.8 g/dL (1.3-4.6); Glomerular Filtration Rate 69.7 mL/min (90-130); Glucose 112 mg/dL (65-115); Lipase 34 U/L (13-60); Osmolality Calculated 291 mOsm/kg (285-295); Potassium 3.6 mmol/L (3.5-5.1); Sodium 139 mmol/L (136-145); Total Bilirubin 0.2 mg/dL (0.15-1.2)
[2022-06-16 04:35] LABS: Alcohol Level < 10 mg/dL (0-10); Valproic Acid Level < 2.4 ug/mL (50-100)
[2022-06-16 05:13] VITALS: BP 128/68; PULSE 88; RESP 15; O2SAT 96
[2022-06-16 05:55] VITALS: PULSE 88; RESP 16; O2SAT 97
== END 2022-06-16 05:40 | disposition home or self-care (01) ==
PROVIDERS: Emergency Provider Emergency Medicine; PCP Family Medicine Adult Medicine
DX: F41.9 Anxiety disorder, unspecified (principal); F17.210 Nicotine dependence, cigarettes, uncomplicated; S00.81XA Abrasion of other part of head, initial encounter; W19.XXXA Unspecified fall, initial encounter
CPT/HCPCS: 70450; 80053; 80164; 80306; 80307; 83690; 85025; 96360; 99285; J7030

== ENCOUNTER 2022-10-21 13:16 | Emergency (ER) | payer MEDICARE, MEDICAID, SELFPAY ==
[2022-10-21 13:19] VITALS: BP 189/142; PULSE 135; RESP 19; TEMP 36.7; O2SAT 98; BMI 28.2
[2022-10-21 13:54] VITALS: PULSE 112; O2SAT 99
--- NOTE | 2022-10-21 13:57 | ED.C_ITS ---
HPI - Psych General: Chief Complaint: Psychiatric Symptoms Stated Complaint: sob/MHE Time Seen by Provider: 10/21/22 13:39 Source: patient Mode of arrival: ambulatory History of Present Illness: Patient was brought to the emergency department by his mother. He states that he has had thoughts of self-harm and in attempted completion of that act he states he used meth 2 days ago and perhaps some of his other medications all in the last 2 days. He now complains of having a dystonic reaction which he has had before. He denies any other current symptoms. Exacerbating factors: medication Associated symptoms: Reports depression Review of Systems Const: Denies: fever(s) or chills Eyes: Denies: change in vision ENMT: Reports: odynophagia Card: Denies: chest pain, palpitations, syncope or pre-syncope Resp: Denies: dyspnea, productive cough or non-productive cough GI: Denies: abdominal pain, nausea or vomiting Musc: Denies: back pain, extremity pain or extremity swelling Skin/Breast: Denies: rash or pruritus Neuro: Denies: headache(s), numbness in extremities or weakness in extremities Psych: Reports: depression PFSH ED PFSH: Medical History Chronic chest wall pain Generalized anxiety disorder Diagnosis from previous provider, Dr. Eugene. Marijuana abuse in remission Patient reports abstinence from illegal drug use. He does report using Kratom , one or two tablespoons per day. 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 Surgical History H/O excision of mass (11/17/21) right forehead, epigastrium, right back History of rectal surgery Social History Smoking and tobacco status: current every day smoker cigarettes Packs smoked p er day: 0.15 Years cigarettes smoked: 20 Quit status (tobacco): has tried quititng Number of times tried to quit tobacco: 50 Second hand smoke exposure: No Smoking risk assessment/counseling performed?: No Alcohol intake: never Desire information about alcohol rehabilitation?: No Counseling given: No Desire information about substance/drug rehabilitation?: No Counseling given: No Physical Exam Narrative: EXAM NARRATIVE: He makes good eye contact. He appears to be slightly anxious and has somewhat expressive dysphonia. Const: COMMON NORMALS: average body habitus, patient oriented x3 and alert GENERAL APPEARANCE: anxious and disheveled HENMT: COMMON NORMALS: normocephalic, atraumatic, Normal nasal mucous membranes and turbinates present, moist oral mucous membranes and oropharynx normal HEAD & SCALP: normocephalic and atraumatic FACE & SINUS: normal facial exam NOSE: Normal nasal mucous membranes and turbinates present THROAT: posterior oropharynx normal and uvula midline Eye: COMMON NORMALS: Equal, round and reactive pupils present, EOMs intact bilaterally and conjunctivae normal CONJUNCTIVA: Yes conjunctivae normal PUPIL: Yes Equal, round and reactive pupils present Neck/C-Spine: COMMON NORMALS: full ROM, no lymphadenopathy and supple OTHER: No evidence of torticollis or other spasmodic neck muscles or movement at this time Chest: COMMONS NORMALS: normal inspection of the chest Resp: COMMON NORMALS: normal respiratory effort, No retractions and clear to auscultation bilaterally AUSCULTATION: clear to auscultation bilaterally Cardio: COMMON NORMALS: regular rate, regular rhythm, No murmurs present (Cardio) and Peripheral pulses 2+ throughout RATE: regular rate RHYTHM: regular rhythm PERIPHERAL PULSES: Peripheral pulses 2+ throughout GI: COMMON NORMALS: Normal to inspection, nondistended, normoactive bowel sounds present, Soft to palpation and non-tender PALPATION: Yes Soft to palpation Back/Pelvis: COMMON NORMALS: thoracic and lumbar spine normal to inspection, no thoracic nor lumbar tenderness and thoraco-lumbar ROM normal Extremity: COMMON NORMALS: normal to inspection, full ROM, no calf tenderness and no pedal edema Neuro: COMMON NORMALS: patient oriented x3, moves all extremities, no focal motor deficits and no sensory deficits noted SENSORIUM/ORIENTATION: Yes alert CRANIAL NERVES: Yes CN normal except as noted SPEECH: abnormal speech Psych: COMMON NORMALS: Normal thought process present ATTITUDE: Yes calm ACTIVITY/MOTOR BEHAVIOR: Yes appropriate eye contact MOOD & AFFECT: Yes Flat affect present THOUGHT PROCESS: Normal thought process present ATTENTION/CONCENTRATION: Yes attention grossly intact MEMORY/COGNITION: Yes memory grossly intact INSIGHT: Fair insight present (Psych) JUDGEMENT: Fair judgement present (Psych) Skin: COMMON NORMALS: no rashes or lesions noted and turgor normal GENERAL SKIN EXAM: no rashes or lesions noted and turgor normal Course Reevaluation(s): Reevaluation #1: Patient was reassessed. He currently states that he feels markedly better. He says that he would prefer to be discharged and go home. He states that he realizes what he was expressing earlier is stupid. He adamantly denies any is continued to harbor any thoughts of self-harm etc. He appears to have intact decision-making capacity at this time. He enunciates well without any slurring or perturbation of his speech or thought process. He states he has appropriate medications for his bipolar disorder. He has no active plan of self-harm. Time: 15:20 Reevaluation #2: Patient has eaten a sandwich. Remained stable, alert and not expressing any desire to harm himself etc. He continues to desire to go home. He agrees to return should he have any pervasive or concerning thoughts. Time: 15:56 Vital Signs: Vital signs: Vital Signs Temperature 98.1 F 10/21/22 13:19 Pulse Rate 97 10/21/22 15:31 Respiratory Rate 18 10/21/22 14:17 Blood Pressure 189/142 10/21/22 13:19 Pulse Oximetry 98 10/21/22 15:31 Oxygen Delivery Me thod 10/21/22 15:31 [facility] [place] - Psych Medical Decision Making This patient presented to the emergency department voluntarily. He initially stated that he had used meth 2 days prior to arrival as well as med taken some of his medications inappropriately. His initial evaluation revealed he may have been having a dystonic reaction. He was given 50 mg of Benadryl and then reevaluated. He did not display any dystonic or other symptoms at the time of his reevaluation. He appeared to be calm and engaging and had intact decision- making capacity and had no ongoing thoughts of self-harm and desired to be discharged from the emergency department. He appears to be taxed with regard of to decision made capacity albeit somewhat poor decisions as exemplified by his methamphetamine use. Currently stable at this time to be discharged with return precautions reviewed and discussed with him and he agreed. Differential Diagnosis Likely acute anxiety Medical Records I reviewed the patient's medical records. Past history of anxiety disorder. Also history of methamphetamine use. Lab Data I reviewed the patient's lab results. 10/21/22 14:45 10/21/22 14:45 Laboratory Results WBC 6.3 10^3/uL (4.0-10.0) 10/21/22 14:45 RBC 4.84 10^6/uL (4.1-5.3) 10/21/22 14:45 Hgb 13.5 g/dL (11.7-16.6) 10/21/22 14:45 Hct 40.1 % (42.0-52.0) L 10/21/22 14:45 MCV 82.9 fl (80-94) 10/21/22 14:45 MCH 27.9 pg (28.0-34.0) L 10/21/22 14:45 MCHC 33.7 g/dL (30.0-36.0) 10/21/22 14:45 RDW 12.5 % (12.1-15.1) 10/21/22 14:45 Plt Count 224 10^3/cmm (130-400) 10/21/22 14:45 MPV 10.0 fL (7.4-10.4) 10/21/22 14:45 Neut % (Auto) 75.7 % 10/21/22 14:45 Lymph % (Auto) 15.2 % 10/21/22 14:45 Swift % (Auto) 7.8 % 10/21/22 14:45 Eos % (Auto) 0.5 % 10/21/22 14:45 Baso % (Auto) 0.5 % 10/21/22 14:45 Neut # (Auto) 4.74 10^3/uL (1.8-7.7) 10/21/22 14:45 Lymph # (Auto) 1.0 10^3/uL (0.8-4.8) 10/21/22 14:45 Swift # (Auto) 0.5 10^3/uL (0.2-0.9) 10/21/22 14:45 Eos # (Auto) 0.0 10^3/uL (0.0-0.8) 10/21/22 14:45 Baso # (Auto) 0.0 10^3/uL (0.0-0.1) 10/21/22 14:45 Nucleated RBC % (auto) 0 % 10/21/22 14:45 Nucleated RBCs # 0.0 /100WBC 10/21/22 14:45 Sodium 138 mmol/L (136-145) 10/21/22 14:45 Potassium 3.6 mmol/L (3.5-5.1) 10/21/22 14:45 Chloride 97 mmol/L (98-107) L 10/21/22 14:45 Carbon Dioxide 22 mmol/L (22-29) 10/21/22 14:45 Anion Gap 22.6 (5-19) H 10/21/22 14:45 BUN 15 mg/dL (6-20) 10/21/22 14:45 Creatinine 0.8 mg/dL (0.7-1.2) 10/21/22 14:45 GFR Calculation 111.3 mL/min (90-130) 10/21/22 14:45 Glucose 78 mg/dL (65-115) 10/21/22 14:45 Calculated Osmolality 286 mOsm/kg (285-295) 10/21/22 14:45 Calcium 9.1 mg/dL (8.5-10.5) 10/21/22 14:45 Total Bilirubin 0.7 mg/dL (0.15-1.2) 10/21/22 14:45 AST 33 U/L (0-40) 10/21/22 14:45 ALT 26 U/L (0-41) 10/21/22 14:45 Alkaline Phosphatase 108 U/L (40-130) 10/21/22 14:45 Total Protein 7.4 g/dL (6.6-8.7) 10/21/22 14:45 Albumin 4.2 g/dL (3.5-5.2) 10/21/22 14:45 Globulin 3.2 g/dL (1.3-4.6) 10/21/22 14:45 Salicylates < 0.3 mg/dL (3-10) L 10/21/22 14:45 Acetaminophen < 5.0 ug/mL (10-30) L 10/21/22 14:45 Discharge Plan Discharge Patient Disposition: Home Clinical Impression: Generalized anxiety disorder, Methamphetamine abuse Condition: Stable Prescriptions: No Action buspirone 10 mg tablet 10 mg PO DAILY 30 Days Qty: 30 0RF perphenazine 2 mg tablet 4 mg PO .HS 30 Days Qty: 60 0RF gabapentin 400 mg capsule 400 mg PO TID Qty: 90 0RF sertraline 100 mg tablet 100 mg PO DAILY Qty: 30 0RF olanzapine 5 mg tablet 5 mg PO BEDTIME multivitamin Tablet 1 tab PO DAILY Discharge Orders: Discharge ED (Routine); Ordered 10/21/22 Ordered By: Kendall Loja Referrals: Josue Wiggins MD [Primary Care Provider] - Discharge Diet: Usual diet Discharge Activity: Increase activity as tolerated Patient Instructions: Opioid Safety, Pain Management Activity Restrictions/Additional Instructions: Take all your usual medications as prescribed and as prescribed only. Do not use street drugs as they have long-term as well as short-term consequences. If it anytime you are concerned about how you are feeling, feel as if you might when to harm yourself etc. either call 911 or return to this emergency department immediately Coding Level of Care Code ED [employer] for Faina Pearson Exam Comprehensive
[2022-10-21] MEDS: diphenhydrAMINE 50 mg/mL SDV 1mL IM (14:10)
--- NOTE | 2022-10-21 14:16 | PC.NURSE ---
pt states he feels he is having an allergic reaction and that his throat is tight. diphenhydramine IM given o2 level 99 percent. pt in NAD.
[2022-10-21 14:17] VITALS: PULSE 112; RESP 18; O2SAT 99
[2022-10-21 14:51] LABS: Basophils % 0.5 %; Eosinophils % 0.5 %; Hematocrit 40.1 % (42.0-52.0); Hemoglobin 13.5 g/dL (11.7-16.6); Lymphocytes % 15.2 %; Mean Corpuscular HGB Conc 33.7 g/dL (30.0-36.0); Mean Corpuscular Hemoglobin 27.9 pg (28.0-34.0); Mean Corpuscular Volume 82.9 fl (80-94); Monocytes # 0.5 10^3/uL (0.2-0.9); Monocytes % 7.8 %; Neutrophils # 4.74 10^3/uL (1.8-7.7); Neutrophils % 75.7 %; Nucleated Red Blood Cells % 0 %; Platelet Count 224 10^3/cmm (130-400); Red Blood Count 4.84 10^6/uL (4.1-5.3); Red Cell Distribution Width 12.5 % (12.1-15.1); White Blood Count 6.3 10^3/uL (4.0-10.0)
[2022-10-21 15:09] LABS: Alanine Aminotransferase 26 U/L (0-41); Albumin Level 4.2 g/dL (3.5-5.2); Alkaline Phosphatase 108 U/L (40-130); Anion Gap 22.6 (5-19); Aspartate Amino Transferase 33 U/L (0-40); Blood Urea Nitrogen 15 mg/dL (6-20); Calcium 9.1 mg/dL (8.5-10.5); Carbon Dioxide 22 mmol/L (22-29); Chloride 97 mmol/L (98-107); Globulin 3.2 g/dL (1.3-4.6); Glomerular Filtration Rate 111.3 mL/min (90-130); Glucose 78 mg/dL (65-115); Osmolality Calculated 286 mOsm/kg (285-295); Potassium 3.6 mmol/L (3.5-5.1); Sodium 138 mmol/L (136-145); Total Bilirubin 0.7 mg/dL (0.15-1.2); Total Protein 7.4 g/dL (6.6-8.7)
[2022-10-21 15:14] LABS: Acetaminophen < 5.0 ug/mL (10-30); Salicylate < 0.3 mg/dL (3-10)
--- NOTE | 2022-10-21 15:30 | PC.NURSE ---
pt reports throat no longer feels tight and he is no longer feeling he is having trouble breathing @1530 o2 98 percent
[2022-10-21 15:31] VITALS: PULSE 97; O2SAT 98
== END 2022-10-21 16:07 | disposition home or self-care (01) ==
PROVIDERS: Emergency Provider Emergency Medicine; PCP Family Medicine Adult Medicine
DX: F41.1 Generalized anxiety disorder (principal); F15.10 Other stimulant abuse, uncomplicated; F17.210 Nicotine dependence, cigarettes, uncomplicated
CPT/HCPCS: 36415; 80053; 80307; 85025; 96372; 99284; J1200

== ENCOUNTER → 2025-02-26 13:36 | Outpatient (BNVA) | payer MEDICARE, SELFPAY | PROVIDERS: PCP Family Medicine Adult Medicine; Visit Provider Family Medicine | DX: Z13.6 Encounter for screening for cardiovascular disorders (principal) | CPT/HCPCS: 80053; 80061; 85025 ==